=== PATIENT | female | born 1955 | race Caucasian/White ===

== ENCOUNTER 2017-01-03 19:53 | Emergency (ER) | payer MEDICARE, OTHER ==
--- NOTE | 2017-01-03 20:44 | ER Document Report ---
ED General - General Chief Complaint: General Weakness Stated Complaint: WEAKNESS Notes: Patient is a 61-year-old female with past medical history of seizures, A. fib, chronic anxiety, depression, and history of catatonia who presents after a syncopal episode today. States she was seen in the kitchen began to feel lightheaded and nauseated. She then had a witnessed syncopal episode. States that this felt nothing like her seizures and she was alert and oriented also immediately afterward. Denies any injury during the syncopal episode. States she has a history of syncope in the past. She has not seen her primary care physician regarding today's concerns. She is unsure what prompted the episode today. Nothing is worsened her symptoms. No recent medication changes. Denies any focal weakness, numbness, headache, neck pain, or confusion. TRAVEL OUTSIDE OF THE [place] IN LAST 30 DAYS: No - Related Data Allergies/Adverse Reactions: atropine [Atropine] Allergy (Verified 10/26/16 17:05) codeine [Codeine] Allergy (Verified 10/26/16 17:05) doxepin [Doxepin] Allergy (Verified 10/26/16 17:05) fluoxetine HCl [From Prozac] Allergy (Verified 10/26/16 17:05) hydroxyzine pamoate [From Vistaril] Allergy (Verified 10/26/16 17:05) indomethacin [Indomethacin] Allergy (Verified 10/26/16 17:05) lamotrigine [From Lamictal] Allergy (Verified 10/26/16 17:05) lithium [[place]] Allergy (Verified 10/26/16 17:05) methocarbamol [Methocarbamol] Allergy (Verified 10/26/16 17:05) bleach Allergy (Uncoded 10/26/16 17:05) Past Medical History - General Information source: Patient - Social History Smoking Status: Never Smoker Frequency of alcohol use: None Drug Abuse: None Lives with: Family Family History: CAD, CVA - Past Medical History Cardiac Medical History: Reports: Hx Atrial Fibrillation, Hx Congestive Heart Failure, Hx Coronary Artery Disease, Hx Hypercholesterolemia, Hx Hypertension, Hx Heart Murmur Denies: Hx Heart Attack, Hx Peripheral Vascular Disease, Hx Pulmonary Embolism Pulmonary Medical History: Denies: Hx Asthma, Hx Bronchitis, Hx COPD, Hx Pneumonia, Hx Respiratory Failure, Hx Sleep Apnea, Hx Tuberculosis Neurological Medical History: Reports: Hx Cerebrovascular Accident, Hx Migraine , Hx Seizures Endocrine Medical History: Denies: Hx Graves' Disease, Hx Hyperthyroidism Renal/ Medical History: Reports: Hx Kidney Stones. Denies: Hx End Stage Renal Disease, Hx Peritoneal Dialysis Malignancy Medical History: Denies: Hx Leukemia, Hx Lung Cancer GI Medical History: Reports: Hx Gastroesophageal Reflux Disease, Hx Irritable Bowel. Denies: Hx Crohn's Disease, Hx Liver Failure Musculoskeltal Medical History: Denies Hx Arthritis, Reports Hx Fibromyalgia, Denies Hx Multiple Sclerosis, Denies Hx Muscular Dystrophy Psychiatric Medical History: Reports: Hx Anxiety, Hx Bipolar Disorder, Hx Depression Denies: Hx Dementia, Hx Post Traumatic Stress Disorder, Hx Schizophrenia Traumatic Medical History: Denies: Hx Fractures Past Surgical History: Reports: Hx Abdominal Surgery - Abdominoplasty after a gastric bypass, Hx Appendectomy, Hx Breast Surgery - breast reduction, Hx Cardiac Catheterization - x3, Hx Cholecystectomy, Hx Gastric Bypass Surgery, Hx Hysterectomy, Hx Orthopedic Surgery - R ankle, Hx Vascular Surgery - PORT. Denies: Hx Bowel Surgery, Hx Section, Hx Colostomy, Hx Coronary Artery Bypass Graft, Hx Herniorrhaphy, Hx Mastectomy, Hx Pacemaker, Hx Tonsillectomy, Hx Tubal Ligation - Immunizations Immunizations up to date: Yes Hx Diphtheria, Pertussis, Tetanus Vaccination: Yes Hx Pneumococcal Vaccination: 01/17/13 Review of Systems - Review of Systems Notes: Constitutional: Negative for fever. HENT: Negative for sore throat. Eyes: Negative for visual changes. Cardiovascular: Negative for chest pain. Positive for syncopal episode Respiratory: Negative for shortness of breath. Gastrointestinal: Negative for abdominal pain, vomiting or diarrhea. Genitourinary: Negative for dysuria. Musculoskeletal: Negative for back pain. Skin: Negative for rash. Neurological: Negative for headaches, weakness or numbness. 10 point ROS negative except as marked above and in HPI. Physical Exam - Vital signs Vitals: Temp Pulse Resp BP Pulse Ox 97.9 F 50 L 20 131/58 H 97 01/03/17 19:55 01/03/17 19:55 01/03/17 19:55 01/03/17 19:55 01/03/17 19:55 Interpretation: Bradycardic Notes: PHYSICAL EXAMINATION: GENERAL: Well-appearing, well-nourished and in no acute distress. HEAD: Atraumatic, normocephalic. EYES: Pupils equal round and reactive to light, extraocular movements intact, sclera anicteric, conjunctiva are normal. ENT: nares patent, oropharynx clear without exudates. Moist mucous membranes. NECK: Normal range of motion, supple without lymphadenopathy LUNGS: Breath sounds clear to auscultation bilaterally and equal. No wheezes rales or rhonchi. HEART: Regular rate and rhythm without murmurs ABDOMEN: Soft, nontender, normoactive bowel sounds. No guarding, no rebound. No masses appreciated. EXTREMITIES: Normal range of motion, no pitting or edema. No cyanosis. NEUROLOGICAL: Face symmetric. Tongue protrudes midline. Extraocular motions intact. Pupils are 2 mm and equally reactive. Normal speech, normal gait. 5 out of 5 strength in both the distal and proximal upper and lower extremities bilaterally. Sensation is grossly intact throughout. Finger to nose testing normal. Pronator drift normal. PSYCH: Normal mood, normal affect. SKIN: Warm, Dry, normal turgor, no rashes or lesions noted. Course - Re-evaluation Re-evalutation: 01/03/17 20:44 Presentation of syncope of unclear etiology. Patient normotensive, alert, without focal neurologic deficits at time of arrival. Denies syncope was during exertion. No preceding symptoms of palpitations, chest pain, or shortness of breath. Patient asymptomatic at time of arrival. EKG is without evidence of HCOM , right heart strain, ST changes to suggest ischemia, prolong QTc, delta wave, epsilon wave, or Brugada syndrome. Patient denies any family history of sudden cardiac , personal history of of structural heart disease. Patient denies any symptoms to suggest an acute PE, OK, TAD, SAH, seizure, or acute GI bleed as the etiology of their syncope today. On exam, no murmurs to suggest critical aortic stenosis as possible etiology. 01/03/17 21:24 I was called to the room as the patient became spontaneously obtunded. I went to the bedside, patient's vitals are completely within normal limits. She is protecting her airway without difficulty. She moans incomprehensibly with sternal rub. Her arms fall to her side bilaterally when held directly above her face. Her eyes roll downward when her lids are forcibly raise. This is not consistent with an acute stroke, TIA, or intracranial bleed. Patient has a history of similar presentations in the past. CT the head will be obtained to exclude the remote possibility of an intracranial bleed and if this is negative I suspect that this is behavioral in origin as patient has had multiple episodes similar to this that have been evaluated in the past without clear etiology. 01/03/17 23:17 Patient is completely return to her baseline. Family and the patient now relates that she often has these episodes and has been diagnosed as having catatonic spells in the past which would be consistent with the episode that I witnessed. She rates without any neurologic deficits at this time. Her laboratories are completely unremarkable.At this time will discharge with return precautions and follow-up recommendations. Verbal discharge instructions given a the bedside and opportunity for questions given. Medication warnings reviewed. Patient is in agreement with this plan and has verbalized understanding of return precautions and the need for primary care follow-up in the next 24-72 hours. - Vital Signs Vital signs: Temp Pulse Resp BP Pulse Ox 98.4 F 56 L 18 127/64 H 93 01/03/17 23:37 01/03/17 23:41 01/03/17 23:41 01/03/17 23:41 01/03/17 23:41 - Laboratory Result Diagrams: 01/03/17 21:05 01/03/17 21:05 Laboratory results interpreted by me: 01/03/17 01/03/17 21:05 21:05 Plt Count 142 L Chloride 108 H BUN 27 H - Diagnostic Test Radiology reviewed: Image reviewed, Reports reviewed Radiology results interpreted by me: 01/03/17 23:17 CT head: No acute intracranial bleed - EKG Interpretation by Me Additional EKG results interpreted by me: 01/04/17 03:05 Normal sinus rhythm. Rate 53. No ST elevations or depressions. QTC 496. Discharge - Discharge Clinical Impression: Catatonia Syncope Qualifiers: Syncope type: unspecified Qualified Code(s): R55 - Syncope and collapse Condition: Good Disposition: HOME, SELF-CARE Additional Instructions: You were seen today after an episode of passing out. Your EKG here is normal. At this time, we do not feel that your episode of passing out was from any life- threatening cause. Please drink plenty of fluids over the next several days. Return to emergency department if you have any further episodes of syncope, headache, weakness, numbness, chest pain, or shortness of breath. Please follow up closely with your primary care physician.
[2017-01-03 21:11] LABS: HEMOGLOBIN 12.3 g/dL (12.0-15.5); HGB HCT DIFFERENCE -0.1; MEAN CORPUSCULAR HEMOGLOBIN 31.6 pg (27.0-33.4); MEAN CORPUSCULAR HGB CONC 33.3 g/dL (32.0-36.0); MEAN CORPUSCULAR VOLUME 95 fl (80-97); WHITE BLOOD COUNT 5.6 10^3/uL (4.0-10.5)
[2017-01-03 21:31] LABS: ANION GAP 8 (5-19); BLOOD UREA NITROGEN 27 mg/dL (7-20); CALCIUM 8.5 mg/dL (8.4-10.2); CARBON DIOXIDE 28 mmol/L (22-30); CHLORIDE 108 mmol/L (98-107); CREATININE RESULT 0.73 mg/dL (0.52-1.25); GLUCOSE 91 mg/dL (75-110); SODIUM 143.5 mmol/L (137-145)
[2017-01-03 23:41] VITALS: BP 127/64
--- NOTE | 2017-01-04 12:51 | EKG REPORT ---
SEVERITY:- ABNORMAL ECG - SINUS RHYTHM NONSPECIFIC INTRAVENTRICULAR CONDUCTION DELAY LEFT VENTRICULAR HYPERTROPHY : Confirmed by: Radha Rojas 04-Jan-2017 12:50:17
== END 2017-01-04 00:15 | disposition home or self-care (01) ==
LOC: ER 19:53
DX: F20.2 Catatonic schizophrenia (principal); R55 Syncope and collapse; R53.1 Weakness; R00.1 Bradycardia, unspecified; I48.91 Unspecified atrial fibrillation; I50.9 Heart failure, unspecified; I11.0 Hypertensive heart disease with heart failure; I25.10 Atherosclerotic heart disease of native coronary artery without angina pectoris; E78.00 Pure hypercholesterolemia, unspecified; Z86.73 Personal history of transient ischemic attack (TIA), and cerebral infarction without residual deficits; Z87.442 Personal history of urinary calculi; Z98.84 Bariatric surgery status; Z90.49 Acquired absence of other specified parts of digestive tract
CPT/HCPCS: 36415; 70450; 80048; 84484; 85027; 93005; 93010; 99285

== ENCOUNTER 2017-01-28 01:11 | Emergency (ER) | payer MEDICARE, OTHER ==
--- NOTE | 2017-01-28 01:48 | ER Document Report ---
ED General - General Chief Complaint: Shoulder Injury Stated Complaint: SHOULDER INJURY Notes: Patient is a 61-year-old female who presents with complaint of tripping and falling onto her right shoulder. She has pain into her right shoulder. She denies hitting anything else. She denies hitting her head. She denies neck or back pain. She is on Coumadin. She is on Coumadin because of history of atrial fibrillation. She is on flecainide for rate control. She is followed by title vehicle service attendant in [place]. She says last 3-4 months she has been a little bit "unsteady" on her feet. No focal weakness or numbness. No other complaints at this time. TRAVEL OUTSIDE OF THE [place] IN LAST 30 DAYS: No - Related Data Allergies/Adverse Reactions: atropine [Atropine] Allergy (Verified 01/28/17 01:24) codeine [Codeine] Allergy (Verified 01/28/17 01:24) doxepin [Doxepin] Allergy (Verified 01/28/17 01:24) fluoxetine HCl [From Prozac] Allergy (Verified 01/28/17 01:24) hydroxyzine pamoate [From Vistaril] Allergy (Verified 01/28/17 01:24) indomethacin [Indomethacin] Allergy (Verified 01/28/17 01:24) lamotrigine [From Lamictal] Allergy (Verified 01/28/17 01:24) lithium [[place]] Allergy (Verified 01/28/17 01:24) methocarbamol [Methocarbamol] Allergy (Verified 01/28/17 01:24) bleach Allergy (Uncoded 01/28/17 01:24) Past Medical History - Social History Smoking Status: Unknown if Ever Smoked Frequency of alcohol use: None Drug Abuse: None Family History: CAD, CVA - Past Medical History Cardiac Medical History: Reports: Hx Atrial Fibrillation, Hx Congestive Heart Failure, Hx Coronary Artery Disease, Hx Hypercholesterolemia, Hx Hypertension, Hx Heart Murmur Denies: Hx Heart Attack, Hx Peripheral Vascular Disease, Hx Pulmonary Embolism Pulmonary Medical History: Denies: Hx Asthma, Hx Bronchitis, Hx COPD, Hx Pneumonia, Hx Respiratory Failure, Hx Sleep Apnea, Hx Tuberculosis Neurological Medical History: Reports: Hx Cerebrovascular Accident, Hx Migraine , Hx Seizures Endocrine Medical History: Denies: Hx Graves' Disease, Hx Hyperthyroidism Renal/ Medical History: Reports: Hx Kidney Stones. Denies: Hx End Stage Renal Disease, Hx Peritoneal Dialysis Malignancy Medical History: Denies: Hx Leukemia, Hx Lung Cancer GI Medical History: Reports: Hx Gastroesophageal Reflux Disease, Hx Irritable Bowel. Denies: Hx Crohn's Disease, Hx Liver Failure Musculoskeltal Medical History: Denies Hx Arthritis, Reports Hx Fibromyalgia, Denies Hx Multiple Sclerosis, Denies Hx Muscular Dystrophy Psychiatric Medical History: Reports: Hx Anxiety, Hx Bipolar Disorder, Hx Depression Denies: Hx Dementia, Hx Post Traumatic Stress Disorder, Hx Schizophrenia Traumatic Medical History: Denies: Hx Fractures Past Surgical History: Reports: Hx Abdominal Surgery - Abdominoplasty after a gastric bypass, Hx Appendectomy, Hx Breast Surgery - breast reduction, Hx Cardiac Catheterization - x3, Hx Cholecystectomy, Hx Gastric Bypass Surgery, Hx Hysterectomy, Hx Orthopedic Surgery - R ankle, Hx Vascular Surgery - PORT. Denies: Hx Bowel Surgery, Hx Section, Hx Colostomy, Hx Coronary Artery Bypass Graft, Hx Herniorrhaphy, Hx Mastectomy, Hx Pacemaker, Hx Tonsillectomy, Hx Tubal Ligation - Immunizations Immunizations up to date: Yes Hx Diphtheria, Pertussis, Tetanus Vaccination: Yes Hx Pneumococcal Vaccination: 01/17/13 Review of Systems - Review of Systems Notes: My Normal Review Basic REVIEW OF SYSTEMS: CONSTITUTIONAL : Denies fever, chills, or sweats. Denies recent illness. EENT: Denies eye, ear, throat, or mouth pain or symptoms. Denies nasal or sinus congestion. CARDIOVASCULAR: Denies chest pain. RESPIRATORY: Denies cough, cold, or chest congestion. Denies shortness of breath, difficulty breathing, or wheezing. GASTROINTESTINAL: Denies abdominal pain. Denies nausea, vomiting, or diarrhea. Denies constipation. Last BM: MUSCULOSKELETAL: Right shoulder and humerus pain SKIN: Denies rash or skin lesions. HEMATOLOGIC : On Coumadin NEUROLOGICAL: Denies altered mental status or loss of consciousness. Denies headache. Denies weakness or paralysis or loss of use of either side. Denies problems with gait or speech. Denies sensory or motor loss. ALL OTHER SYSTEMS REVIEWED AND NEGATIVE. Physical Exam - Vital signs Vitals: Pulse Ox 97 01/28/17 01:21 - Notes Notes: General Appearance: Well nourished, alert, cooperative, no acute distress, moderate obvious discomfort. Vitals: reviewed, See vital signs table. Head: no swelling or tenderness to the head Eyes: PERRL, EOMI, Conjuctiva clear Mouth: No decreasd moisture Neck: Supple, no neck tenderness, No thyromegaly Lungs: No wheezing, No rales, No rhonci, No accessory muscle use, good air exchange bilaterally. Heart: Cardiac rate, Regular rythm, No murmur, no rub Abdomen: Normal BS, soft, No rigidity, No abdominal tenderness, No guarding, no rebound, no abdominal masses, no organomegaly Extremities: strength 5/5 in all extremities, good pulses in all extremities, pain to palpation of the right shoulder. No pain into the distal humerus elbow or distal right arm. Other 3 extremities are nontender to palpation with good range of motion. Pelvis is stable. Good peripheral pulses. Good distal sensation both hands., no edema. Skin: warm, dry, appropriate color, no rash Neuro: speech clear, oriented x 3, normal affect, responds appropriately to questions. Cranial nerves II through XII intact. Distal sensation intact. Good strength in all 4 extremities. Course - Re-evaluation Re-evalutation: 01/28/17 03:[address] with Dr[address] Hutton, title vehicle service attendant covering for Dr. Madison. I did explain to him that the patient's heart rate has been in the 40s and 50s. Her blood pressures been okay. I asked him if he wanted me to adjust the rate controlling medications. He says I can cut the metoprolol in half. - Vital Signs Vital signs: Temp Pulse Resp BP Pulse Ox 15 101/59 L 97 01/28/17 04:00 01/28/17 01:46 01/28/17 04:00 - Laboratory Result Diagrams: 01/28/17 01:39 01/28/17 01:39 Laboratory results interpreted by me: 01/28/17 01/28/17 01/28/17 01:39 01:39 01:39 Hgb 11.9 L MCV 98 H Plt Count 134 L PT 19.2 H Sodium 145.1 H Chloride 113 H Carbon Dioxide 21 L Calcium 8.2 L AST 43 H Albumin 3.3 L Urine Protein Urine Nitrite Ur Leukocyte Esterase 01/28/17 04:08 Hgb MCV Plt Count PT Sodium Chloride Carbon Dioxide Calcium AST Albumin Urine Protein 30 H Urine Nitrite POSITIVE H Ur Leukocyte Esterase LARGE H - EKG Interpretation by Me Additional EKG results interpreted by me: 01/28/17 01:48 EKG is reviewed and interpreted by me. EKG shows A. fib with a rate of [address] segment elevation or depression. No ischemic T wave inversions. QRS duration QTC intervals are within normal range. Old EKG for comparison is from 01/03/2017. - Transfer of Care Notes: 01/28/17 05:22 Patient does have a humeral head fracture. We have placed her in a sling and have her follow-up with orthopedics. I did do a CT scan of her head being that she is on Coumadin did fall. CT scan was negative. She does have chronic A. fib. Her rate is bradycardic. I did speak with Dr. Hutton, cardiology is covering for Dr. Madison, who requested that I decrease her Toprol dose to 12.5 mg. Patient agrees with this. She does have UTI. We'll place her on antibiotics. She does have history of frequent UTIs. She's never seen a urologist despite her multiple UTIs. I've referred her to urology. Patient encouraged return to ER shows fevers, worsening pain, or feels unwell. Patient agrees with plan and will be discharged home. Dictation of this chart was performed using voice recognition software; therefore, there may be some unintended grammatical errors. Discharge - Discharge Clinical Impression: Bradycardia Fx humeral neck Qualifiers: Encounter type: initial encounter Fracture type: closed Laterality: right Qualified Code(s): S42.211A - Unspecified displaced fracture of surgical neck of right humerus, initial encounter for closed fracture UTI (urinary tract infection) Qualifiers: Urinary tract infection type: site unspecified Hematuria presence: without hematuria Qualified Code(s): N39.0 - Urinary tract infection, site not specified Condition: Good Disposition: HOME, SELF-CARE Instructions: Oral Narcotic Medication ([facility]) Additional Instructions: URINARY TRACT INFECTION: Your evaluation indicates that you have a urinary tract infection. This is due to germs growing in the bladder. This is a common problem. This infection usually responds quickly to antibiotics. Your antibiotic should be taken exactly as prescribed. Drink plenty of fluids -- three to four quarts a day. Occasionally, a bladder anesthetic will be prescribed to help stop the feeling of urgency until the antibiotic has a chance to clear the infection. This may cause your urine to be dark orange. Certain urine infections require a culture. If the doctor obtained a culture, the results will be back in two days. You should call to see if a change in treatment is needed. A repeat urinalysis after you finish treatment is often recommended. The physician will let you know if further testing is required. Call the doctor if you develop fever, chills, flank pain, inability to urinate, or blood in the urine. ANTIBIOTIC THERAPY: You have been given an antibiotic prescription. It's important that you take all the medication, unless instructed otherwise by your physician. Failure to complete the entire course can result in relapse of your condition. Common side effects of antibiotics include nausea, intestinal cramping, or diarrhea. Women may develop vaginal yeast infections, and babies can get yeast (thrush) in the mouth following the use of antibiotics. Contact your physician if you develop significant side effects from this medication. Allergy to this antibiotic can result in hives, wheezing, faintness, or itching. If symptoms of allergy occur, stop the medication and call the doctor. CIPROFLOXACIN: You have been given an antibacterial agent, ciprofloxacin (Cipro). This medicine is not related to the penicillins, sulfas, cephalosporins, or tetracyclines. It is often given to patients who are allergic to these drugs. It has been chosen for you either because other drugs are not appropriate, or because of the nature of your problem. Cipro should not be taken with antacids, as these can decrease its effectiveness. It can be taken without regard to meals. CIPRO SHOULD NOT BE TAKEN BY CHILDREN, NURSING WOMEN, OR WOMEN. Although Cipro is usually well-tolerated, common side effects can include nausea and diarrhea. Contact your doctor if you experience any unusual symptoms while on this medication, such as joint pain or swelling, shortness of breath, wheezing, faintness, or hives. FOLLOW-UP CARE: If you have been referred to a physician for follow-up care, call the physician s office for an appointment as you were instructed or within the next two days. If you experience worsening or a significant change in your symptoms, notify the physician immediately or return to the Emergency Department at any time for re-evaluation. Please return to the ER immediately if you have recurrent falls, headache, vomiting, fevers, or feel unwell. Please cut your Metoprolol tablets in half so that you're only taking 12.5 mg a day. Please call your title vehicle service attendant, Dr. Madison, to make a close follow-up appointment. Please follow-up with orthopedic surgeon, Dr. Johnson, in regards to your humerus fracture. Please wear the sling for comfort and immobilization of the shoulder. Please follow- up with the urologist due to frequent urinary tract infections. I have included the number to a urologist. They have an office in [place] as well as in [place]. Prescriptions: Ciprofloxacin HCl [Cipro 500 mg Tablet] 500 mg PO BID #10 tablet Hydrocodone/Acetaminophen [[place] 5-325 mg Tablet] 1 tab PO Q4 PRN #16 tablet PRN Reason: For Breakthrough Pain Referrals: ROBERTA MANSFIELD MD [ACTIVE STAFF] - 01/29/17 JIGAR REYES [NO LOCAL MD] - 01/29/17
[2017-01-28 01:54] LABS: ABSOLUTE EOSINOPHILS # (AUTO) 0.1 10^3/uL (0.0-0.6); ABSOLUTE LYMPHOCYTES (AUTO) 1.7 10^3/uL (0.5-4.7); ABSOLUTE MONOCYTES (AUTO) 0.8 10^3/uL (0.1-1.4); ABSOLUTE NEUT (AUTO) 4.3 10^3/uL (1.7-8.2); BASOPHILS % (AUTO) 0.7 % (0-2); EOSINOPHILS % (AUTO) 1.4 % (0-6); HEMATOCRIT 36.8 % (36.0-47.0); HEMOGLOBIN 11.9 g/dL (12.0-15.5); HGB HCT DIFFERENCE -1.1; LYMPHOCYTES % (AUTO) 24.8 % (13-45); MEAN CORPUSCULAR HEMOGLOBIN 31.8 pg (27.0-33.4); MEAN CORPUSCULAR HGB CONC 32.4 g/dL (32.0-36.0); MEAN CORPUSCULAR VOLUME 98 fl (80-97); MONOCYTES % (AUTO) 11.7 % (3-13); RED BLOOD COUNT 3.75 10^6/uL (3.72-5.28); RED CELL DISTRIBUTION WIDTH 13.5 % (11.5-14.0); SEGMENTED NEUTROPHILS % (AUTO) 61.4 % (42-78); WHITE BLOOD COUNT 6.9 10^3/uL (4.0-10.5)
[2017-01-28 01:59] LABS: PROTHROMBIN TIME 19.2 SEC (11.4-15.4)
[2017-01-28 02:00] LABS: PARTIAL THROMBOPLASTIN TIME 27.6 SEC (23.5-35.8)
[2017-01-28 03:10] LABS: ALANINE AMINOTRANSFERASE 39 U/L (9-52); ALBUMIN 3.3 g/dL (3.5-5.0); ALKALINE PHOSPHATASE 104 U/L (38-126); ANION GAP 11 (5-19); ASPARTATE AMINO TRANSFERASE 43 U/L (14-36); BILIRUBIN,TOTAL 0.3 mg/dL (0.2-1.3); BLOOD UREA NITROGEN 17 mg/dL (7-20); CALCIUM 8.2 mg/dL (8.4-10.2); CARBON DIOXIDE 21 mmol/L (22-30); CHLORIDE 113 mmol/L (98-107); CREATINE KINASE 45 U/L (30-135); CREATININE RESULT 0.78 mg/dL (0.52-1.25); GLUCOSE 98 mg/dL (75-110); POTASSIUM 4.2 mmol/L (3.6-5.0); SODIUM 145.1 mmol/L (137-145); TOTAL PROTEIN 6.5 g/dL (6.3-8.2)
[2017-01-28 03:22] LABS: CREATINE KINASE MB 0.54 ng/mL (<4.55)
[2017-01-28 03:27] LABS: TROPONIN I < 0.012 ng/mL
[2017-01-28] MEDS ORDERED: HYDROCODONE/ACETAMINOPHEN 5-325 MG TABLET PO ONE (04:17)
[2017-01-28 04:40] LABS: AMORPHOUS SEDIMENT,URINE TRACE /HPF; APPEARANCE,URINE CLOUDY; BILIRUBIN,URINE NEGATIVE (NEGATIVE); GLUCOSE, URINE NEGATIVE (NEGATIVE); KETONES,URINE NEGATIVE (NEGATIVE); LEUKOCYTE ESTERASE,URINE LARGE (NEGATIVE); NITRITE,URINE POSITIVE (NEGATIVE); PROTEIN,URINE 30 mg/dL (NEGATIVE); URINE SPECIFIC GRAVITY 1.024; UROBILINOGEN,URINE NEGATIVE mg/dL (<2.0)
[2017-01-28] MEDS ORDERED: CIPROFLOXACIN HCL 500 MG TABLET PO ONE (05:17)
[2017-01-28] MEDS ORDERED: HYDROCODONE/ACETAMINOPHEN 5-325 MG 6 TAB/DSPK PO PRN (05:17)
[2017-01-28 05:41] VITALS: BP 106/53
--- NOTE | 2017-01-28 20:11 | EKG REPORT ---
SEVERITY:- ABNORMAL ECG - SINUS RHYTHM LEFT VENTRICULAR HYPERTROPHY : Confirmed by: Radha Rojas 28-Jan-2017 20:10:47
== END 2017-01-28 05:47 | disposition home or self-care (01) ==
LOC: ER 01:11
DX: S42.211A Unspecified displaced fracture of surgical neck of right humerus, initial encounter for closed fracture (principal); R00.1 Bradycardia, unspecified; N39.0 Urinary tract infection, site not specified; I48.91 Unspecified atrial fibrillation; W19.XXXA Unspecified fall, initial encounter
CPT/HCPCS: 93005; 99284; 36415; 87086; 82553; 82550; 85025; 85610; 85730; 87088; 80053; 81001; 84484; 87186; 73060; 70450; 93010; A9270 ×3

== ENCOUNTER 2017-04-12 17:17 | Emergency (ER) | payer MEDICARE, OTHER ==
--- NOTE | 2017-04-12 20:13 | ER Document Report ---
ED Extremity Problem, Upper - General Chief Complaint: Arm Problem Stated Complaint: LEFT ARM PAIN Time Seen by Provider: 04/12/17 20:06 Notes: Patient noted pain in the inner aspect of her left arm, proximal forearm, near the elbow over the last 3 or 4 days. She is found a very tiny nodular structure just about at the elbow itself that is very tender to the touch and about which the pain is present. Has never had this before. Does not feel it swollen. Just painful to touch or move the arm in certain positions. Patient has a banana room cutter in [place] and she is on Xarelto for her atrial fibrillation. She called our office and the nurse that she needed to go to the emergency room and make sure she was not having a clot in her left arm. Patient has never had this before. Recalls no injury or unusual activity or positioning of her left arm. Denies any chest pain or shortness of breath. No neurologic deficits. TRAVEL OUTSIDE OF THE [place] IN LAST 30 DAYS: No - Related Data Allergies/Adverse Reactions: atropine [Atropine] Allergy (Verified 04/12/17 19:56) codeine [Codeine] Allergy (Verified 04/12/17 19:56) doxepin [Doxepin] Allergy (Verified 04/12/17 19:56) fluoxetine HCl [From Prozac] Allergy (Verified 04/12/17 19:56) hydroxyzine pamoate [From Vistaril] Allergy (Verified 04/12/17 19:56) indomethacin [Indomethacin] Allergy (Verified 04/12/17 19:56) lamotrigine [From Lamictal] Allergy (Verified 04/12/17 19:56) lithium [[place]] Allergy (Verified 04/12/17 19:56) methocarbamol [Methocarbamol] Allergy (Verified 04/12/17 19:56) bleach Allergy (Uncoded 04/12/17 19:56) Past Medical History - Social History Smoking Status: Unknown if Ever Smoked Cigarette use (# per day): No Family History: CAD, CVA Patient has suicidal ideation: No - Past Medical History Cardiac Medical History: Reports: Hx Atrial Fibrillation, Hx Congestive Heart Failure, Hx Coronary Artery Disease, Hx Hypercholesterolemia, Hx Hypertension, Hx Heart Murmur Neurological Medical History: Reports: Hx Cerebrovascular Accident, Hx Migraine , Hx Seizures Renal/ Medical History: Reports: Hx Kidney Stones GI Medical History: Reports: Hx Gastroesophageal Reflux Disease, Hx Irritable Bowel Musculoskeltal Medical History: Reports Hx Fibromyalgia Psychiatric Medical History: Reports: Hx Anxiety, Hx Bipolar Disorder, Hx Depression Traumatic Medical History: Denies: Hx Fractures Past Surgical History: Reports: Hx Abdominal Surgery - Abdominoplasty after a gastric bypass, Hx Appendectomy, Hx Breast Surgery - breast reduction, Hx Cardiac Catheterization - x3, Hx Cholecystectomy, Hx Gastric Bypass Surgery, Hx Hysterectomy, Hx Orthopedic Surgery - R ankle, Hx Vascular Surgery - PORT - Immunizations Immunizations up to date: Yes Hx Diphtheria, Pertussis, Tetanus Vaccination: Yes Hx Pneumococcal Vaccination: 01/17/13 Review of Systems - Review of Systems Notes: REVIEW OF SYSTEMS: CONSTITUTIONAL : Denies fever. EENT: Denies eye, ear, nose or mouth or throat pain or other symptoms. CARDIOVASCULAR: Denies chest pain. RESPIRATORY: Denies cough, chest congestion, or shortness of breath. GASTROINTESTINAL: Denies abdominal pain or nausea, vomiting, or diarrhea. GENITOURINARY: Denies difficulty or painful urinating, urinary frequency, blood in urine. MUSCULOSKELETAL: Denies back or neck pain. Denies joint pain or swelling. SKIN: See HPI. NEUROLOGICAL: Denies LOC or altered mental status. Denies headache. Denies sensory loss or motor deficits. ALL OTHER SYSTEMS REVIEWED AND NEGATIVE. Course - Re-evaluation Re-evalutation: 04/12/17 21:08 Since physical findings are consistent with a superficial venous thrombosis. No evidence of a deep venous thrombosis. I do not think the patient is at any risk of an adverse outcome. She is already anticoagulated on her Xarelto. I have recommended conservative care with warm compresses and elevation. Patient says she is unable to take NSAIDs. Discharge - Discharge Clinical Impression: Superficial venous thrombosis of arm Qualifiers: Laterality: left Qualified Code(s): I82.612 - Acute embolism and thrombosis of superficial veins of left upper extremity Condition: Stable Disposition: HOME, SELF-CARE Additional Instructions: Superficial Venous Thrombosis: You have a small superficial venous thrombosis in her left arm. That is a small clot in a small superficial vein of the left arm. These clots were not dangerous and they do not break off and go into your lungs. Sometimes they will turn into superficial phlebitis, same pain, swelling, and warmth and heat to the area. Superficial venous thrombosis are similar to varicose veins in her lower extremities. Varicose veins These are veins that bulge out under the skin. There are more prominent in the lower extremities But can occur in the upper extremities, as well. They develop when the valves in the veins fail. These valves normally keep blood moving upstream towards the heart. Without the valves, the pressure of the blood expands and weakens the veins. Varicose veins may simply be unsightly. But often they cause aching pains in the legs, especially after standing. There may be itching and irritation. Occasionally a vein may become clotted, with redness, tenderness, and swelling. Elevate your legs periodically during the day. Support hose can help. Don' t rub or scratch at bulging veins -- this makes them worse. Don't sit with your legs crossed. Avoid standing in one place for more than a few minutes. Walking reduces the pressure in the veins. If varicose veins continue to cause severe symptoms, an operation to remove them ("vein stripping") might help. Call the doctor or return if there is increased swelling, redness, or fever , if there is general leg pain, or if a varicose veins bleeds and won't stop after 15 minutes of direct pressure. Warm Packs After approximately two days, apply gentle heat (such as a heating pad or hot water bottle) for about 20 to 30 minutes about every two hours -- at least four times daily. Warmth and elevation will help you make a more rapid recovery , and will ease the pain considerably. Do not use HOT heat, and never apply heat for longer than 30 minutes. The continuous heat can invisibly damage skin and muscles -- even when no burn is seen on the surface. Damaged muscles can make you MORE sore. Elevation & Warmth The area should be elevated as much as possible over the next 48 hours. Try to keep it above the level of your heart. Apply gentle heat (such as a heating pad or hot water bottle) for about 20 to 30 minutes about every two hours -- at least four times daily. Warmth and elevation will help you make a more rapid recovery, and will ease the pain considerably. Your arm swells much worse, becomes much more painful, he began to run a fever, or you feel that you should be reevaluated, return for us to do so at any time. It is extremely unlikely that she will develop serious clots in any of your blood vessels while you are on the Eliquis. Referrals: JONATHAN HUDSON, [Primary Care Provider] - Follow up as needed
== END 2017-04-12 20:58 | disposition home or self-care (01) ==
LOC: ER 17:17
DX: I82.612 Acute embolism and thrombosis of superficial veins of left upper extremity (principal); M79.632 Pain in left forearm; I25.10 Atherosclerotic heart disease of native coronary artery without angina pectoris; I10 Essential (primary) hypertension; Z88.5 Allergy status to narcotic agent; Z88.8 Allergy status to other drugs, medicaments and biological substances; Z91.048 Other nonmedicinal substance allergy status; Z86.73 Personal history of transient ischemic attack (TIA), and cerebral infarction without residual deficits; Z98.84 Bariatric surgery status
CPT/HCPCS: 99283

== ENCOUNTER 2017-07-04 09:59 | Emergency (ER) | payer MEDICARE, OTHER ==
[2017-07-04 10:45] LABS: ABSOLUTE EOSINOPHILS # (AUTO) 0.1 10^3/uL (0.0-0.6); ABSOLUTE MONOCYTES (AUTO) 0.5 10^3/uL (0.1-1.4); ABSOLUTE NEUT (AUTO) 1.9 10^3/uL (1.7-8.2); BASOPHILS % (AUTO) 0.5 % (0-2); HEMATOCRIT 34.5 % (36.0-47.0); HEMOGLOBIN 11.6 g/dL (12.0-15.5); HGB HCT DIFFERENCE 0.3; LYMPHOCYTES % (AUTO) 44.8 % (13-45); MEAN CORPUSCULAR HEMOGLOBIN 33.1 pg (27.0-33.4); MEAN CORPUSCULAR HGB CONC 33.8 g/dL (32.0-36.0); MEAN CORPUSCULAR VOLUME 98 fl (80-97); MONOCYTES % (AUTO) 10.8 % (3-13); RED BLOOD COUNT 3.52 10^6/uL (3.72-5.28); RED CELL DISTRIBUTION WIDTH 13.3 % (11.5-14.0); SEGMENTED NEUTROPHILS % (AUTO) 41.9 % (42-78); WHITE BLOOD COUNT 4.5 10^3/uL (4.0-10.5)
--- NOTE | 2017-07-04 10:57 | RADIOLOGY REPORT (SQ) ---
EXAM DESCRIPTION: CHEST PA/LAT COMPLETED DATE/TIME: 07/04/2017 10:43 am REASON FOR STUDY: short of breath COMPARISON: 10/26/2016 EXAM PARAMETERS: NUMBER OF VIEWS: two views TECHNIQUE: Digital Frontal and Lateral radiographic views of the chest acquired. RADIATION DOSE: NA LIMITATIONS: none FINDINGS: LUNGS AND PLEURA: No opacities, masses or pneumothorax. No pleural effusion. MEDIASTINUM AND HILAR STRUCTURES: No masses or contour abnormalities. HEART AND VASCULAR STRUCTURES: Heart normal size. No evidence for failure. BONES: There is a fracture of the right humeral neck that was not present on the earlier study. HARDWARE: Injection port on the right. The tip of the catheter is in the superior vena cava. OTHER: No other significant finding. IMPRESSION: 1. No acute cardiopulmonary disease. 2. Healing fracture of the right humeral neck not present in early October 2016. TECHNICAL DOCUMENTATION: JOB ID: [id number] [employer]- All Rights Reserved
[2017-07-04 11:11] LABS: ALANINE AMINOTRANSFERASE 33 U/L (9-52); ALBUMIN 3.5 g/dL (3.5-5.0); ALKALINE PHOSPHATASE 114 U/L (38-126); ANION GAP 7 (5-19); ASPARTATE AMINO TRANSFERASE 28 U/L (14-36); BILIRUBIN,DIRECT 0.3 mg/dL (0.0-0.4); BILIRUBIN,TOTAL 0.3 mg/dL (0.2-1.3); BLOOD UREA NITROGEN 20 mg/dL (7-20); CALCIUM 8.8 mg/dL (8.4-10.2); CARBON DIOXIDE 30 mmol/L (22-30); CHLORIDE 106 mmol/L (98-107); GLUCOSE 82 mg/dL (75-110); LIPASE 157.8 U/L (23-300); POTASSIUM 4.4 mmol/L (3.6-5.0); SODIUM 143.2 mmol/L (137-145); TOTAL PROTEIN 6.6 g/dL (6.3-8.2)
[2017-07-04 11:23] LABS: APPEARANCE,URINE CLEAR; BILIRUBIN,URINE NEGATIVE (NEGATIVE); GLUCOSE, URINE NEGATIVE (NEGATIVE); KETONES,URINE NEGATIVE (NEGATIVE); LEUKOCYTE ESTERASE,URINE LARGE (NEGATIVE); NITRITE,URINE NEGATIVE (NEGATIVE); PROTEIN,URINE NEGATIVE (NEGATIVE); URINE SPECIFIC GRAVITY 1.005; UROBILINOGEN,URINE NEGATIVE mg/dL (<2.0)
[2017-07-04 11:37] LABS: CREATINE KINASE MB 0.59 ng/mL (<4.55)
[2017-07-04 11:39] LABS: TROPONIN I < 0.012 ng/mL
[2017-07-04] MEDS ORDERED: NORMAL SALINE 1000 ML 1,000 ML IV ONE (12:33)
[2017-07-04] MEDS ORDERED: CEFTRIAXONE 1 GM/D5W RTU 1 GM/50 ML RTUPB IV ONE (12:34)
--- NOTE | 2017-07-04 12:42 | ER Document Report ---
ED General - General Chief Complaint: Weakness Stated Complaint: WEAKNESS Time Seen by Provider: 07/04/17 10:13 Notes: Patient brought in by EMS for low heart rate and low blood pressure. Patient was at a visit with her pain management doctors when this episode occurred. Patient says that she has been feeling weak for the last 2 weeks, although she says she has been able to eat and drink sufficiently. She sees pain management for back pain. She is on a pain patch, but it imaged on Sunday and that was her last one. At the pain management office, her heart rate was in the 40s and her blood pressure was 83 systolic. She has been nauseated but not vomiting except for 2 days ago she vomited. She has had some diarrhea. She sleeps at night with CPAP. Has had some pain in the lower right anterior chest off and on for the past 2 weeks. It extends over into the epigastric region. Also has some shortness of breath and difficulty breathing. Has not noted any fever. Does feel her legs are swollen. She has a history of CHF and is on Lasix. Has had 3 cardiac caths , but no stents placed in her coronary arteries. Sees a recreational leader at [place], Dr. Madison, whom she saw about 4 months ago and is scheduled to see her tomorrow. She has a history of atrial fibrillation and is currently on Toprol-XL daily and Xarelto. Other PMH: Hysterectomy, gastric bypass 20 years ago, abdominoplasty, cardiac caths with history of CHF. Anemia, used to receive iron by a port in the right chest, but has not had any for over a year. TRAVEL OUTSIDE OF THE [place] IN LAST 30 DAYS: No - Related Data Allergies/Adverse Reactions: atropine [Atropine] Allergy (Verified 07/04/17 17:21) codeine [Codeine] Allergy (Verified 07/04/17 17:21) doxepin [Doxepin] Allergy (Verified 07/04/17 17:21) fluoxetine HCl [From Prozac] Allergy (Verified 07/04/17 17:21) hydroxyzine pamoate [From Vistaril] Allergy (Verified 07/04/17 17:21) indomethacin [Indomethacin] Allergy (Verified 07/04/17 17:21) lamotrigine [From Lamictal] Allergy (Verified 07/04/17 17:21) lithium [[place]] Allergy (Verified 07/04/17 17:21) methocarbamol [Methocarbamol] Allergy (Verified 07/04/17 17:21) bleach Allergy (Uncoded 07/04/17 17:21) Past Medical History - Social History Smoking Status: Unknown if Ever Smoked Chew tobacco use (# tins/day): No Frequency of alcohol use: None Drug Abuse: None Family History: Reviewed & Not Pertinent, CAD, CVA - Past Medical History Cardiac Medical History: Reports: Hx Atrial Fibrillation, Hx Congestive Heart Failure, Hx Coronary Artery Disease, Hx Hypercholesterolemia, Hx Hypertension, Hx Heart Murmur Neurological Medical History: Reports: Hx Cerebrovascular Accident, Hx Migraine , Hx Seizures Renal/ Medical History: Reports: Hx Kidney Stones GI Medical History: Reports: Hx Gastroesophageal Reflux Disease, Hx Irritable Bowel Musculoskeltal Medical History: Reports Hx Fibromyalgia Psychiatric Medical History: Reports: Hx Anxiety, Hx Bipolar Disorder, Hx Depression Past Surgical History: Reports: Hx Abdominal Surgery - Abdominoplasty after a gastric bypass, Hx Appendectomy, Hx Breast Surgery - breast reduction, Hx Cardiac Catheterization - x3, Hx Cholecystectomy, Hx Gastric Bypass Surgery, Hx Hysterectomy, Hx Orthopedic Surgery - R ankle, Hx Vascular Surgery - PORT - Immunizations Immunizations up to date: Yes Hx Diphtheria, Pertussis, Tetanus Vaccination: Yes Hx Pneumococcal Vaccination: 01/17/13 Review of Systems - Review of Systems Notes: REVIEW OF SYSTEMS: CONSTITUTIONAL : Denies fever. Feeling generalized weakness. EENT: Denies eye, ear, nose or mouth or throat pain or other symptoms. CARDIOVASCULAR: Has had some right lower anterior chest pains off and on for the past 2 weeks. RESPIRATORY: Denies cough, chest congestion, but has had shortness of breath and difficulty breathing intermittently over the past couple of weeks. GASTROINTESTINAL: Denies abdominal pain but has had nausea and vomiting and diarrhea. GENITOURINARY: Denies difficulty or painful urinating, urinary frequency, blood in urine. MUSCULOSKELETAL: Denies back or neck pain. Denies joint pain or swelling. Feels she has swelling of the lower extremities. SKIN: Denies rash or skin lesions. NEUROLOGICAL: Denies LOC or altered mental status. Denies headache. Denies sensory loss or motor deficits. ALL OTHER SYSTEMS REVIEWED AND NEGATIVE. Physical Exam - Vital signs Vitals: Resp Pulse Ox 16 100 07/04/17 10:06 07/04/17 10:06 Interpretation: Normal - Notes Notes: PHYSICAL EXAMINATION: GENERAL: Well-appearing, in no acute distress. Initially, upon arrival, blood pressure in the 80s systolic here and heart rate in the low 40s. HEAD: Atraumatic, normocephalic. ENT: oropharynx clear without exudates. Moist mucous membranes. NECK: Normal range of motion, supple. LUNGS: Breath sounds clear and equal bilaterally. HEART: Regular rate and rhythm without murmurs. Heart rate about 45. ABDOMEN: Soft, nontender. No guarding or rebound. BACK: No tenderness throughout entire back. EXTREMITIES: Normal range of motion without pain. No significant pretibial pitting edema of either leg. NEUROLOGICAL: Normal speech, normal gait. Normal sensory, motor, and reflex exams. Awake, alert, and oriented x3. PSYCH: Normal mood, normal affect. SKIN: Warm, dry, no rashes. Course - Re-evaluation Re-evalutation: 07/04/17 17:11 Discussed patient's findings and lab results with Dr. Madison, recreational leader in [place]. She recommended holding the Toprol and follow-up with her tomorrow as scheduled. I related that to the patient and her daughter who is here with her. Patient has received a liter of saline and a gram of Rocephin IV. 07/04/17 19:16 patient remained stable throughout her stay. In spite of her heart rate remaining in the low 40s, her blood pressure stabilized around 120 systolic and stayed at those levels throughout her several hours in the emergency department, allowing for adequate observation. Her lab work is suggestive of a UTI, but otherwise is unremarkable. - Vital Signs Vital signs: Temp Pulse Resp BP Pulse Ox 97.8 F 45 L 20 131/55 H 100 07/04/17 14:29 07/04/17 14:29 07/04/17 17:41 07/04/17 17:41 07/04/17 17:41 - Laboratory Result Diagrams: 07/04/17 10:22 07/04/17 10:22 Laboratory results interpreted by me: 07/04/17 07/04/17 07/04/17 10:22 10:59 12:36 RBC 3.52 L Hgb 11.6 L Hct 34.5 L MCV 98 H Plt Count 120 L Seg Neutrophils % 41.9 L Lactic Acid 0.6 L Ur Leukocyte Esterase LARGE H Discharge - Discharge Clinical Impression: Bradycardia, Hypotension, UTI (urinary tract infection) Condition: Stable Disposition: HOME, SELF-CARE Additional Instructions: Hypotension Your blood pressure is low. Low blood pressure can make you feel weak, lightheaded, and even make you pass out. Low blood pressure can be caused by dehydration or blood loss. Problems with the heart, kidneys, or blood vessels can cause hypotension. Certain medications can make your blood pressure abnormally low. Infection can lower blood pressure. In many cases, the person is totally healthy, but for unknown reasons, the blood pressure falls when they stand up. This is called benign orthostatic hypotension. The treatment of low blood pressure depends on the severity of the symptoms , and on the underlying cause. Sometimes it's not possible to identify a cause. At this time, it doesn't appear that the problem is serious enough to require hospitalization. Medicines that could be contributing to the problem can be withheld or reduced in dosage if your doctor approves. Get plenty of fluids. Eat a healthy diet. Be careful to stand up slowly. If you feel suddenly lightheaded or if your vision goes dai, sit or lie down at once. Don't drive or operate machinery until the symptoms are under control. Return or call the doctor if you develop fainting or severe dizziness, severe weakness, problems with vision, chest pain, shortness of breath, fever, or confusion. You also have a slightly slow heart rate, called bradycardia, with your heart rate in the low 40s. Stop taking your Toprol for now until you talk with Dr. Madison tomorrow. URINARY TRACT INFECTION: Your evaluation indicates that you have a urinary tract infection. This is due to germs growing in the bladder. This is a common problem. This infection usually responds quickly to antibiotics. Your antibiotic should be taken exactly as prescribed. Drink plenty of fluids -- three to four quarts a day. Occasionally, a bladder anesthetic will be prescribed to help stop the feeling of urgency until the antibiotic has a chance to clear the infection. This may cause your urine to be dark orange. Certain urine infections require a culture. If the doctor obtained a culture, the results will be back in two days. You should call to see if a change in treatment is needed. A repeat urinalysis after you finish treatment is often recommended. The physician will let you know if further testing is required. Call the doctor if you develop fever, chills, flank pain, inability to urinate, or blood in the urine. ANTIBIOTIC THERAPY: You have been given an antibiotic prescription. It's important that you take all the medication, unless instructed otherwise by your physician. Failure to complete the entire course can result in relapse of your condition. Common side effects of antibiotics include nausea, intestinal cramping, or diarrhea. Women may develop vaginal yeast infections, and babies can get yeast (thrush) in the mouth following the use of antibiotics. Contact your physician if you develop significant side effects from this medication. Allergy to this antibiotic can result in hives, wheezing, faintness, or itching. If symptoms of allergy occur, stop the medication and call the doctor. Rocephin You have been given an injection of an antibiotic called Rocephin ( ceftriaxone). Sometimes the injection must be combined with antibiotic pills. For some infections, such as an uncomplicated ear infection, Rocephin provides all the antibiotic that's needed. The antibiotic will be in your body for about two days. For serious infections, we usually repeat doses of Rocephin daily. Side effects are very unusual following a shot. Women may develop vaginal yeast infections, and babies can get yeast (thrush) in the mouth following the use of antibiotics. Contact your physician if you have symptoms with this medication. Allergy to this antibiotic can result in hives, wheezing, faintness, or itching. If symptoms of allergy occur, call the doctor at once. NITROFURANTOIN (MACRODANTIN, MACROBID): You have received a prescription for nitrofurantoin (Macrodantin). This antibiotic is used for urinary tract infections. Women who are or nursing should notify the physician before taking this medicine. If you have ever had a problem caused by this medication in the past, be sure the physician is aware of it. Common side effects of this medicine include nausea, vomiting, or decreased appetite. Notify your physician if these side effects become severe. Immediately stop this medicine and call the physician if you develop cough , shortness of breath, chest pain, weakness, jaundice (yellow color of the skin and whites of the eyes), or a skin rash. FOLLOW-UP CARE: If you have been referred to a physician for follow-up care, call the physician s office for an appointment as you were instructed or within the next two days. If you experience worsening or a significant change in your symptoms, notify the physician immediately or return to the Emergency Department at any time for re-evaluation. Follow-up with Dr. Madison as scheduled tomorrow Prescriptions: Nitrofurantoin/Nitrofuran Mac [Macrobid 100 mg Capsule] 1 tab PO BID #14 capsule
[2017-07-04 12:49] LABS: PROTHROMBIN TIME 13.7 SEC (11.4-15.4)
--- NOTE | 2017-07-04 13:45 | EKG REPORT ---
SEVERITY:- ABNORMAL ECG - SINUS BRADYCARDIA LEFT VENTRICULAR HYPERTROPHY : Confirmed by: Junior Ahn MD 04-Jul-2017 13:45:06
[2017-07-04 17:44] VITALS: BP 131/55
== END 2017-07-04 17:50 | disposition home or self-care (01) ==
LOC: ER 09:59
DX: I95.9 Hypotension, unspecified (principal); R00.1 Bradycardia, unspecified; N39.0 Urinary tract infection, site not specified; R53.1 Weakness; M54.9 Dorsalgia, unspecified; R11.2 Nausea with vomiting, unspecified; R19.7 Diarrhea, unspecified; R07.9 Chest pain, unspecified; R10.13 Epigastric pain; R06.02 Shortness of breath; I11.0 Hypertensive heart disease with heart failure; I50.9 Heart failure, unspecified; I25.10 Atherosclerotic heart disease of native coronary artery without angina pectoris; I48.91 Unspecified atrial fibrillation; Z79.01 Long term (current) use of anticoagulants; Z79.899 Other long term (current) drug therapy; Z98.84 Bariatric surgery status; Z88.8 Allergy status to other drugs, medicaments and biological substances; Z88.5 Allergy status to narcotic agent; Z91.048 Other nonmedicinal substance allergy status
CPT/HCPCS: 93005; 99285; 96374; 36415; 87040; 87086; 82553; 83690; 85025; 85610; 80053; 81001; 84484; 83605; 71020; 93010; J0696

== ENCOUNTER → 2017-09-06 | Outpatient (CLI) | payer MEDICARE, OTHER ==
--- NOTE | 2017-09-06 16:45 | WOMENS IMAGING REPORT ---
EXAM DESCRIPTION: 3D SCREENING MAMMO BILAT COMPLETED DATE/TIME: 09/06/2017 10:50 am REASON FOR STUDY: SCREENING MAMMO Z12.31 ENCNTR SCREEN MAMMOGRAM FOR MALIGNANT NEOPLASM OF [place] COMPARISON: Multiple since 2008 TECHNIQUE: Standard craniocaudal and mediolateral oblique views of each breast recorded using digita l acquisition and breast tomosynthesis. LIMITATIONS: None. FINDINGS: Findings present which are benign by mammographic criteria. No suspicious masses, calcifi cations or architectural distortion. Pertinent benign findings: Post bilateral breast reduction. Benign calcifications bilaterally. Pace maker artifact over the left upper outer quadrant, port artifact over the right upper outer quadrant Read with the assistance of CAD. .[facility] - R2 Cenova Version 1.3 .[facility] Imaging - R2 Cenova Version 1.3 .[facility] Imaging - R2 Cenova Version 2.4 .[facility] - R2 Cenova Version 2.4 .[facility] - R2 Ophthalmic Technologist Version 9.2 Benign mammographic findings may include one or more of the following: Smooth masses, popcorn/rim/co arse calcifications, asymmetries, post-procedure changes, and lesions with long-standing stability. IMPRESSION: BENIGN MAMMOGRAPHIC FINDINGS. BIRADS 2 BREAST DENSITY: a. The breasts are almost entirely fatty. BIRAD: 2 BENIGN FINDING(S) RECOMMENDATION: RECOMMENDATION: ROUTINE SCREENING Please continue yearly bilateral screening tomosynthesis in August 2018 COMMENT: The patient has been notified of the results by letter per SA requirements. Additional no tification policies are in place for contacting patient with suspicious or incomplete findings. Quality ID #[id number]: The [employer] recommends an annual screening mammogram for women aged 40 years or over. This facility utilizes a reminder system to ensure that all patients receive reminder letters, and/or direct phone calls for appointments. This includes reminders for routine scr eening mammograms, diagnostic mammograms, or other Breast Imaging Interventions when appropriate. Th is patient will be placed in the appropriate reminder system. The [employer] (ACR) has developed recommendations for screening MRI of the breast s in certain patient populations, to be used in conjunction with mammography. Breast MRI surveillanc e may be appropriate for women with more than 20% lifetime risk of developing breast cancer as deter mined by genetic testing, significant family history of the disease, or history of mantle radiation f or Hodgkins Disease. ACR Practice Guidelines 2008. DBT Technology DBT is a type of tomographic mammography. With conventional mammography, overlapping breast tissue ma y make lesions difficult to detect, even with good compression. DBT uses an x-ray tube that rotates a round the breast, taking images at different angles. These images are then combined to create thin sl ices of the breast that the radiologist can view as a 3D reconstruction. The Hologic unit can perform full-field digital mammograms (2D imaging); or DBT (3D imaging); or both, in a combination mode that quickly performs both the mammogram and the tomosynthesis scan while the breast is still compressed. PQRS 6045F: Fluoroscopic imaging is not utilized for breast tomosynthesis. TECHNICAL DOCUMENTATION: FINDING NUMBER: (1) ASSESSMENT: (1) JOB ID: [id number] [employer]- All Rights Reserved
== END ==
LOC: WI 09:05
PROVIDERS: ATTEND Physician Assistant
DX: Z12.31 Encounter for screening mammogram for malignant neoplasm of breast (principal)
CPT/HCPCS: 77063; G0202; 77067

== ENCOUNTER 2017-10-28 15:02 | Emergency (ER) | payer MEDICARE, OTHER ==
--- NOTE | 2017-10-28 15:26 | ER Document Report ---
ED Seizure - General Chief Complaint: Probable Seizure Stated Complaint: PROBABLE SEIZURE Time Seen by Provider: 10/28/17 15:13 Mode of Arrival: Medic Information source: Patient - HPI Notes: 62-year-old female with history of seizure disorder on Broviac and Tegretol, atrial fibrillation and CHF, presents with seizure at home. Unclear apparently how long the seizure lasted as the patient did not realize it except she felt her normal postictal symptoms afterwards which includes mild nausea and lightheadedness. She has no headache. Denies any injury trauma or pain. She does admit to poor sleep as newlyweds that are staying at her house state out with her car until approximately 2 AM and she was somewhat upset by this and did not sleep. She has taken all of her medications as she is supposed to for the day and has missed her recent doses. Denies any medication changes. She is on Xarelto for atrial fibrillation but has had no bleeding. Denies recent illness, nausea vomiting diarrhea, cough shortness of breath or chest discomfort. Denies any neurologic symptoms. Prior to the seizure as she felt her normal postictal symptoms including headache, she stimulated her nerve stimulator but it did not apparently work. She is seen in [place] for this and has a local neurologist here as well. - Related Data Allergies/Adverse Reactions: atropine [Atropine] Allergy (Verified 07/16/17 00:35) codeine [Codeine] Allergy (Verified 07/16/17 00:35) doxepin [Doxepin] Allergy (Verified 07/16/17 00:35) fluoxetine HCl [From Prozac] Allergy (Verified 07/16/17 00:35) hydroxyzine pamoate [From Vistaril] Allergy (Verified 07/16/17 00:35) indomethacin [Indomethacin] Allergy (Verified 07/16/17 00:35) lamotrigine [From Lamictal] Allergy (Verified 07/16/17 00:35) lithium [[place]] Allergy (Verified 07/16/17 00:35) methocarbamol [Methocarbamol] Allergy (Verified 07/16/17 00:35) bleach Allergy (Uncoded 07/16/17 00:35) Past Medical History - Social History Smoking Status: Never Smoker Family History: Reviewed & Not Pertinent, CAD, CVA - Past Medical History Cardiac Medical History: Reports: Hx Atrial Fibrillation, Hx Congestive Heart Failure, Hx Coronary Artery Disease, Hx Hypercholesterolemia, Hx Hypertension, Hx Heart Murmur Denies: Hx Heart Attack, Hx Peripheral Vascular Disease, Hx Pulmonary Embolism Pulmonary Medical History: Reports: Hx Sleep Apnea - Uncertain settings; no home O2 Denies: Hx Asthma, Hx Bronchitis, Hx COPD, Hx Pneumonia, Hx Respiratory Failure, Hx Tuberculosis Neurological Medical History: Reports: Hx Cerebrovascular Accident, Hx Migraine , Hx Seizures Endocrine Medical History: Reports: Hx Hypothyroidism. Denies: Hx Diabetes Mellitus Type 1, Hx Diabetes Mellitus Type 2, Hx Graves' Disease, Hx Hyperthyroidism Renal/ Medical History: Reports: Hx Kidney Stones. Denies: Hx End Stage Renal Disease, Hx Peritoneal Dialysis Malignancy Medical History: Denies: Hx Leukemia, Hx Lung Cancer GI Medical History: Reports: Hx Gastroesophageal Reflux Disease, Hx Irritable Bowel. Denies: Hx Cirrhosis, Hx Crohn's Disease, Hx Hepatitis, Hx Liver Failure , Hx Pancreatitis Musculoskeltal Medical History: Denies Hx Arthritis, Reports Hx Fibromyalgia, Denies Hx Multiple Sclerosis, Denies Hx Muscular Dystrophy Psychiatric Medical History: Reports: Hx Anxiety, Hx Bipolar Disorder, Hx Depression Denies: Hx Dementia, Hx Post Traumatic Stress Disorder, Hx Schizophrenia Traumatic Medical History: Denies: Hx Fractures Infectious Medical History: Denies: Hx Hepatitis Past Surgical History: Reports: Hx Abdominal Surgery - Abdominoplasty after a gastric bypass, Hx Appendectomy, Hx Breast Surgery - breast reduction, Hx Cardiac Catheterization - x3, Hx Cholecystectomy, Hx Gastric Bypass Surgery, Hx Hysterectomy, Hx Orthopedic Surgery - R ankle, Hx Vascular Surgery - PORT. Denies: Hx Bowel Surgery, Hx Section, Hx Colostomy, Hx Coronary Artery Bypass Graft, Hx Herniorrhaphy, Hx Mastectomy, Hx Pacemaker, Hx Tonsillectomy, Hx Tubal Ligation - Immunizations Immunizations up to date: Yes Hx Diphtheria, Pertussis, Tetanus Vaccination: Yes Hx Pneumococcal Vaccination: 01/17/13 Review of Systems - Review of Systems -: Yes All other systems reviewed and negative Physical Exam - Vital signs Notes: See nurse's notes. - Notes Notes: GENERAL: VS as per nursing doc. Well-appearing, well-nourished and in no acute distress. HEAD: Atraumatic, normocephalic. EYES: Pupils equal round and reactive to light, extraocular movements intact, sclera anicteric, no conjunctival injection or discharge. ENT: Nares patent, oropharynx clear without exudates. Moist mucous membranes. NECK: Normal range of motion, supple, no carotid bruits. LUNGS: Breath sounds clear to auscultation bilaterally and equal. No wheezes rales or rhonchi. HEART: Normal S1S2. Regular rate and rhythm with diffuse systolic murmur noted. Equal peripheral pulses. ABDOMEN: Soft, non-tender. EXTREMITIES: No significant range of motion limitations. No edema. NEUROLOGICAL: GCS 15, Cranial nerves II-XII intact. Normal visual marx. Normal speech without aphasia. No pronator drift. 5/5 RUE strength, 5/5 RLE strength, 5/5 LUE strength, 5/5 LLE strength. No cerebellar abnormalities including normal finger-nose testing. Negative Babinski, 1+= DTR refelexes. PSYCH: Normal mood, normal affect. SKIN: Warm, Dry, no cyanosis, Cap refill < 2 sec.
[2017-10-28 16:32] LABS: ABSOLUTE EOSINOPHILS # (AUTO) 0.1 10^3/uL (0.0-0.6); ABSOLUTE LYMPHOCYTES (AUTO) 2.2 10^3/uL (0.5-4.7); ABSOLUTE MONOCYTES (AUTO) 0.6 10^3/uL (0.1-1.4); ABSOLUTE NEUT (AUTO) 2.5 10^3/uL (1.7-8.2); BASOPHILS % (AUTO) 0.6 % (0-2); EOSINOPHILS % (AUTO) 2.2 % (0-6); HEMATOCRIT 38.3 % (36.0-47.0); HGB HCT DIFFERENCE 0.7; MEAN CORPUSCULAR HEMOGLOBIN 32.4 pg (27.0-33.4); MEAN CORPUSCULAR VOLUME 95 fl (80-97); RED BLOOD COUNT 4.02 10^6/uL (3.72-5.28); RED CELL DISTRIBUTION WIDTH 13.3 % (11.5-14.0); SEGMENTED NEUTROPHILS % (AUTO) 46.2 % (42-78); WHITE BLOOD COUNT 5.4 10^3/uL (4.0-10.5)
[2017-10-28 16:41] LABS: ANION GAP 10 (5-19); BLOOD UREA NITROGEN 17 mg/dL (7-20); CALCIUM 8.7 mg/dL (8.4-10.2); CARBON DIOXIDE 30 mmol/L (22-30); CHLORIDE 105 mmol/L (98-107); CREATININE RESULT 0.77 mg/dL (0.52-1.25); GLUCOSE 94 mg/dL (75-110); MAGNESIUM 1.9 mg/dL (1.6-2.3); POTASSIUM 3.3 mmol/L (3.6-5.0)
[2017-10-28] MEDS ORDERED: POTASSIUM CHLORIDE 10 MEQ TABLET.SA PO ONE (16:44)
[2017-10-28] MEDS ORDERED: LORAZEPAM INJ 2 MG/1 ML VIAL IV ONE (18:34)
--- NOTE | 2017-10-28 18:35 | RADIOLOGY REPORT (SQ) ---
EXAM DESCRIPTION: CHEST PA/LAT COMPLETED DATE/TIME: 10/28/2017 6:25 pm REASON FOR STUDY: SOB COMPARISON: 07/04/2017 EXAM PARAMETERS: NUMBER OF VIEWS: two views TECHNIQUE: Digital Frontal and Lateral radiographic views of the chest acquired. RADIATION DOSE: NA LIMITATIONS: none FINDINGS: LUNGS AND PLEURA: No acute opacities, masses or pneumothorax. No pleural effusion. MEDIASTINUM AND HILAR STRUCTURES: Stable. HEART AND VASCULAR STRUCTURES: Heart normal size. No evidence for failure. BONES: No acute findings. HARDWARE: Right chest port. Left chest-neck nerve stimulator. OTHER: No other significant finding. IMPRESSION: No acute findings. TECHNICAL DOCUMENTATION: JOB ID: [id number] [id number] [employer]- All Rights Reserved
[2017-10-28 21:06] VITALS: BP 101/51
--- NOTE | 2017-10-28 22:40 | EKG REPORT ---
SEVERITY:- ABNORMAL ECG - SINUS RHYTHM LEFT VENTRICULAR HYPERTROPHY : Confirmed by: Radha Rojas 28-Oct-2017 22:39:32
== END 2017-10-28 21:08 | disposition home or self-care (01) ==
LOC: ER 15:02
DX: G40.909 Epilepsy, unspecified, not intractable, without status epilepticus (principal); Z79.899 Other long term (current) drug therapy; E87.6 Hypokalemia; I48.91 Unspecified atrial fibrillation; Z79.01 Long term (current) use of anticoagulants; I10 Essential (primary) hypertension; R01.1 Cardiac murmur, unspecified; I25.10 Atherosclerotic heart disease of native coronary artery without angina pectoris; Z88.5 Allergy status to narcotic agent; Z88.8 Allergy status to other drugs, medicaments and biological substances; Z91.048 Other nonmedicinal substance allergy status; Z86.73 Personal history of transient ischemic attack (TIA), and cerebral infarction without residual deficits
CPT/HCPCS: 93005; 99284; 96374; 36415; 83735; 80156; 85025; 80048; 71020; 93010; J2060; A9270

== ENCOUNTER 2018-01-07 11:35 | Emergency (ER) | payer MEDICARE, OTHER ==
[2018-01-07] MEDS ORDERED: NORMAL SALINE 1000 ML 1,000 ML IV ONE (12:14)
[2018-01-07] MEDS ORDERED: KETOROLAC TROMETHAMINE INJ/PF 30 MG/1 ML SDV IV ONE (12:14)
[2018-01-07] MEDS ORDERED: LORAZEPAM INJ 2 MG/1 ML VIAL IV ONE (12:50)
[2018-01-07 13:10] LABS: ABSOLUTE EOSINOPHILS # (AUTO) 0.1 10^3/uL (0.0-0.6); ABSOLUTE LYMPHOCYTES (AUTO) 2.2 10^3/uL (0.5-4.7); ABSOLUTE MONOCYTES (AUTO) 0.5 10^3/uL (0.1-1.4); ABSOLUTE NEUT (AUTO) 1.8 10^3/uL (1.7-8.2); BASOPHILS % (AUTO) 0.7 % (0-2); EOSINOPHILS % (AUTO) 2.2 % (0-6); HEMATOCRIT 36.7 % (36.0-47.0); HEMOGLOBIN 12.3 g/dL (12.0-15.5); LYMPHOCYTES % (AUTO) 48.2 % (13-45); MEAN CORPUSCULAR HEMOGLOBIN 32.3 pg (27.0-33.4); MEAN CORPUSCULAR HGB CONC 33.4 g/dL (32.0-36.0); MEAN CORPUSCULAR VOLUME 97 fl (80-97); MONOCYTES % (AUTO) 10.2 % (3-13); PLATELET COUNT 153 10^3/uL (150-450); RED BLOOD COUNT 3.79 10^6/uL (3.72-5.28); RED CELL DISTRIBUTION WIDTH 13.3 % (11.5-14.0); SEGMENTED NEUTROPHILS % (AUTO) 38.7 % (42-78); TOTAL CELLS COUNTED % (AUTO) 100 %; WHITE BLOOD COUNT 4.7 10^3/uL (4.0-10.5)
[2018-01-07 13:28] LABS: ALANINE AMINOTRANSFERASE 39 U/L (9-52); ALBUMIN 3.2 g/dL (3.5-5.0); ALKALINE PHOSPHATASE 117 U/L (38-126); ANION GAP 7 (5-19); ASPARTATE AMINO TRANSFERASE 41 U/L (14-36); BILIRUBIN,DIRECT 0.2 mg/dL (0.0-0.4); BILIRUBIN,TOTAL 0.2 mg/dL (0.2-1.3); BLOOD UREA NITROGEN 21 mg/dL (7-20); CALCIUM 8.2 mg/dL (8.4-10.2); CARBON DIOXIDE 28 mmol/L (22-30); CHLORIDE 109 mmol/L (98-107); GLUCOSE 130 mg/dL (75-110); POTASSIUM 3.4 mmol/L (3.6-5.0); SODIUM 144.3 mmol/L (137-145); TOTAL PROTEIN 6.2 g/dL (6.3-8.2)
--- NOTE | 2018-01-07 13:36 | EKG REPORT ---
SEVERITY:- ABNORMAL ECG - SINUS BRADYCARDIA LEFT VENTRICULAR HYPERTROPHY : Confirmed by: Junior Ahn MD 07-Jan-2018 13:34:53
--- NOTE | 2018-01-07 14:44 | ER Document Report ---
ED Dizziness/Weakness - General Chief Complaint: Weakness Stated Complaint: WEAKNESS Time Seen by Provider: 01/07/18 12:01 Mode of Arrival: Medic Information source: Patient, Relative Notes: Patient is a 62-year-old female who presents to the ER today for having a seizure while trying to get an iron transfusion at the oncologist office. Patient also saw her neurologist this morning who increased or as patient words it "turned up" her vasal nerve stimulator that she had placed in July for her increased seizures. Patient is an epileptic. Patient is also on Tegretol and Briviact daily for seizures. Patient states that she has had her patient vasal nerve stimulator turned up multiple times before and has never had an issue. Pt just started taking iron transfusions over the past 2 months and has had an increase in seizures. She is alert and oriented at this time, did not bite her tongue or urinate on herself. Relatives describe her seizure this morning as her stiffening up and gazing off to the right which is normal for her. She sees the oncologist just for iron deficiency anemia, she does not have cancer. TRAVEL OUTSIDE OF THE [place] IN LAST 30 DAYS: No - Related Data Allergies/Adverse Reactions: atropine [Atropine] Allergy (Verified 07/16/17 00:35) codeine [Codeine] Allergy (Verified 07/16/17 00:35) doxepin [Doxepin] Allergy (Verified 07/16/17 00:35) fluoxetine HCl [From Prozac] Allergy (Verified 07/16/17 00:35) hydroxyzine pamoate [From Vistaril] Allergy (Verified 07/16/17 00:35) indomethacin [Indomethacin] Allergy (Verified 07/16/17 00:35) lamotrigine [From Lamictal] Allergy (Verified 07/16/17 00:35) lithium [[place]] Allergy (Verified 07/16/17 00:35) methocarbamol [Methocarbamol] Allergy (Verified 07/16/17 00:35) bleach Allergy (Uncoded 07/16/17 00:35) Past Medical History - General Information source: Patient, Relative - Social History Smoking Status: Unknown if Ever Smoked Family History: Reviewed & Not Pertinent, CAD, CVA Patient has suicidal ideation: No Patient has homicidal ideation: No - Past Medical History Cardiac Medical History: Reports: Hx Atrial Fibrillation, Hx Congestive Heart Failure, Hx Coronary Artery Disease, Hx Hypercholesterolemia, Hx Hypertension, Hx Heart Murmur Denies: Hx Heart Attack, Hx Peripheral Vascular Disease, Hx Pulmonary Embolism Pulmonary Medical History: Reports: Hx Sleep Apnea - Uncertain settings; no home O2 Denies: Hx Asthma, Hx Bronchitis, Hx COPD, Hx Pneumonia, Hx Respiratory Failure, Hx Tuberculosis Neurological Medical History: Reports: Hx Cerebrovascular Accident, Hx Migraine , Hx Seizures Endocrine Medical History: Reports: Hx Hypothyroidism. Denies: Hx Diabetes Mellitus Type 1, Hx Diabetes Mellitus Type 2, Hx Graves' Disease, Hx Hyperthyroidism Renal/ Medical History: Reports: Hx Kidney Stones. Denies: Hx End Stage Renal Disease, Hx Peritoneal Dialysis Malignancy Medical History: Denies: Hx Leukemia, Hx Lung Cancer GI Medical History: Reports: Hx Gastroesophageal Reflux Disease, Hx Irritable Bowel. Denies: Hx Cirrhosis, Hx Crohn's Disease, Hx Hepatitis, Hx Liver Failure , Hx Pancreatitis Musculoskeltal Medical History: Denies Hx Arthritis, Reports Hx Fibromyalgia, Denies Hx Multiple Sclerosis, Denies Hx Muscular Dystrophy Psychiatric Medical History: Reports: Hx Anxiety, Hx Bipolar Disorder, Hx Depression Denies: Hx Dementia, Hx Post Traumatic Stress Disorder, Hx Schizophrenia Traumatic Medical History: Denies: Hx Fractures Infectious Medical History: Denies: Hx Hepatitis Past Surgical History: Reports: Hx Abdominal Surgery - Abdominoplasty after a gastric bypass, Hx Appendectomy, Hx Breast Surgery - breast reduction, Hx Cardiac Catheterization - x3, Hx Cholecystectomy, Hx Gastric Bypass Surgery, Hx Hysterectomy, Hx Orthopedic Surgery - R ankle, Hx Vascular Surgery - PORT. Denies: Hx Bowel Surgery, Hx Section, Hx Colostomy, Hx Coronary Artery Bypass Graft, Hx Herniorrhaphy, Hx Mastectomy, Hx Pacemaker, Hx Tonsillectomy, Hx Tubal Ligation - Immunizations Immunizations up to date: Yes Hx Diphtheria, Pertussis, Tetanus Vaccination: Yes Hx Pneumococcal Vaccination: 01/17/13 Review of Systems - Review of Systems Constitutional: No symptoms reported EENT: No symptoms reported Cardiovascular: No symptoms reported Respiratory: No symptoms reported Gastrointestinal: No symptoms reported Genitourinary: No symptoms reported Female Genitourinary: No symptoms reported Musculoskeletal: No symptoms reported Skin: No symptoms reported Hematologic/Lymphatic: No symptoms reported Neurological/Psychological: See HPI Physical Exam - Vital signs Vitals: Temp 97.3 F 01/07/18 11:55 - Notes Notes: PHYSICAL EXAMINATION: GENERAL: Tired appearing, but in no acute distress. HEAD: Atraumatic, normocephalic. EYES: Pupils equal round and reactive to light, extraocular movements intact, sclera anicteric, conjunctiva are normal. NECK: Normal range of motion, supple without lymphadenopathy LUNGS: CTAB and equal. No wheezes rales or rhonchi. HEART: Regular rate and rhythm without murmurs ABDOMEN: Soft, no tenderness. No guarding, no rebound BACK: no vertebral tenderness, normal ROM GI/: no CVA tenderness EXTREMITIES: Normal range of motion, no pitting edema. No cyanosis. NEUROLOGICAL: Cranial nerves grossly intact. Normal sensory/motor exams. PSYCH: Normal mood, normal affect. SKIN: Warm, Dry, normal turgor, no rashes or lesions noted Course - Re-evaluation Re-evalutation: 01/07/18 14:48 Lab work is unremarkable at this time, patient did have another small seizure here for approximately 20 seconds where she stiffened and gaze off to the right. Relatives again state that this is normal for her seizure activity. I did speak to the nurse practitioner Dr. Holbrook's office who increased her vasal nerve stimulator this morning who states that this is normal for patient and that she thinks it has nothing to do with "turning up" the vasal nerve stimulator. She wanted to follow-up with her in the office this week. Patient did receive fluids, something for her headache and Ativan here after her seizure in the ER. - Vital Signs Vital signs: Temp Pulse Resp BP Pulse Ox 97.3 F 01/07/18 11:55 - Laboratory Result Diagrams: 01/07/18 12:01 01/07/18 12:01 Laboratory results interpreted by me: 01/07/18 01/07/18 12:01 12:01 Seg Neutrophils % 38.7 L Lymphocytes % 48.2 H Potassium 3.4 L Chloride 109 H BUN 21 H Glucose 130 H Calcium 8.2 L AST 41 H Total Protein 6.2 L Albumin 3.2 L Discharge - Discharge Clinical Impression: Seizure disorder Condition: Stable Disposition: HOME, SELF-CARE Additional Instructions: Return immediately for any new or worsening symptoms. Follow up with primary care provider, call tomorrow to make followup appointment. Your neurologist would like to see you this week, please call tomorrow to make an appointment. Referrals: JENNIFER DIAMOND PA [Primary Care Provider] - Follow up as needed
[2018-01-07 15:39] VITALS: BP 117/61
== END 2018-01-07 15:38 | disposition home or self-care (01) ==
LOC: ER 11:35
DX: G40.909 Epilepsy, unspecified, not intractable, without status epilepticus (principal); R53.1 Weakness; Z79.899 Other long term (current) drug therapy
CPT/HCPCS: 93005; 36591; 99284; 96361; 96374; 96375; 36415; 80156; 85025; 80053; 93010; J1885; J2060; J7030

== ENCOUNTER 2018-07-03 18:12 | Emergency (ER) | payer MEDICARE ==
--- NOTE | 2018-07-03 19:00 | ER Document Report ---
ED Extremity Problem, Upper - General Chief Complaint: Arm Pain Stated Complaint: RIGHT ARM PAIN Time Seen by Provider: 07/03/18 18:56 Mode of Arrival: Ambulatory Information source: Patient Notes: Chief complaint: Right proximal forearm swelling and pain History of complain:( obtained from----patient) 63 years old female presents today with a bout of sudden onset since this morning. Which is painful noted and not. Each was over the proximal forearm on the flexor surface just distal to the elbow joint. Denies any difficulty in flexion and extension of the elbow. Denies any injury. Denies any difficulty in breathing. Onset: As above sudden Duration: Since this morning Severity: Mild Quality: Sharp Context: Unknown Exacerbating factor and relieving factors: None REVIEW OF SYSTEMS: CONSTITUTIONAL : Denies fever, chills, or sweats. Denies recent illness. EENT: Denies eye, ear, throat, or mouth pain or symptoms. Denies nasal or sinus congestion or discharge. Denies throat, tongue, or mouth swelling or difficulty swallowing. CARDIOVASCULAR: Denies chest pain. Denies palpitations or racing or irregular heart beat. Denies ankle edema. RESPIRATORY: Denies cough, cold, or chest congestion. Denies shortness of breath, difficulty breathing, or wheezing. GASTROINTESTINAL: Denies distention. Denies nausea, vomiting, or diarrhea. Denies blood in vomitus, stools, or per rectum. Denies black, tarry stools. Denies constipation. GENITOURINARY: Denies difficulty urinating, painful urination, burning, frequency, blood in urine, or discharge. FEMALE GENITOURINARY: Denies vaginal bleeding, heavy or abnormal periods, irregular periods. Denies vaginal discharge or odor. MUSCULOSKELETAL: Denies back or neck pain or stiffness. Denies joint pain or swelling. SKIN: Denies rash, lesions or sores. HEMATOLOGIC : Denies easy bruising or bleeding. LYMPHATIC: Denies swollen, enlarged glands. NEUROLOGICAL: Denies confusion or altered mental status. Denies passing out or loss of consciousness. Denies dizziness or lightheadedness. Denies headache. Denies weakness or paralysis or loss of use of either side. Denies problems with gait or speech. Denies sensory loss, numbness, or tingling. Denies seizures. PSYCHIATRIC: Denies anxiety or stress. Denies depression, suicidal ideation, or homicidal ideation. ALL OTHER SYSTEMS REVIEWED AND NEGATIVE. PHYSICAL EXAMINATION: GENERAL: Well-appearing, well-nourished and in no acute distress. HEAD: Atraumatic, normocephalic. EYES: Pupils equal round and reactive to light, extraocular movements intact, conjunctiva are normal. ENT: Nares patent, oropharynx clear without exudates. Moist mucous membranes. NECK: Normal range of motion, supple without lymphadenopathy LUNGS: Breath sounds clear to auscultation bilaterally and equal. No wheezes rales or rhonchi. HEART: Regular rate and rhythm without murmurs ABDOMEN: Soft, nontender, nondistended abdomen. No guarding, no rebound. No masses appreciated. Examination of genitals-deferred Musculoskeletal: Right forearm, over the flexors surface, proximal to the elbow swelling noted with obtained palpable venous cord. NEUROLOGICAL: Cranial nerves grossly intact. Normal speech, normal gait. Normal sensory, motor exams PSYCH: Normal mood, normal affect. SKIN: Warm, Dry, normal turgor, no rashes or lesions noted. 19:40 While waiting in the ED suddenly she became short of breath and when started having chest pain which is severe. Therefore she was moved to the trauma room. Dictation was performed using [employer] voice recognition software TRAVEL OUTSIDE OF THE [place] IN LAST 30 DAYS: No - HPI Notes: Dictated - Related Data Allergies/Adverse Reactions: atropine [Atropine] Allergy (Verified 07/03/18 18:50) codeine [Codeine] Allergy (Verified 07/03/18 18:50) doxepin [Doxepin] Allergy (Verified 07/03/18 18:50) fluoxetine HCl [From Prozac] Allergy (Verified 07/03/18 18:50) hydroxyzine pamoate [From Vistaril] Allergy (Verified 07/03/18 18:50) indomethacin [Indomethacin] Allergy (Verified 07/03/18 18:50) lamotrigine [From Lamictal] Allergy (Verified 07/03/18 18:50) lithium [[place]] Allergy (Verified 07/03/18 18:50) methocarbamol [Methocarbamol] Allergy (Verified 07/03/18 18:50) bleach Allergy (Uncoded 07/03/18 18:50) Past Medical History - Social History Smoking Status: Never Smoker Cigarette use (# per day): No Chew tobacco use (# tins/day): No Frequency of alcohol use: Rare Drug Abuse: None Lives with: Family Family History: Reviewed & Not Pertinent, CAD, CVA - Past Medical History Cardiac Medical History: Reports: Hx Atrial Fibrillation, Hx Congestive Heart Failure, Hx Coronary Artery Disease, Hx Hypercholesterolemia, Hx Hypertension, Hx Heart Murmur Denies: Hx Heart Attack, Hx Peripheral Vascular Disease, Hx Pulmonary Embolism Pulmonary Medical History: Reports: Hx Sleep Apnea - Uncertain settings; no home O2 Denies: Hx Asthma, Hx Bronchitis, Hx COPD, Hx Pneumonia, Hx Respiratory Failure, Hx Tuberculosis Neurological Medical History: Reports: Hx Cerebrovascular Accident, Hx Migraine , Hx Seizures Endocrine Medical History: Reports: Hx Hypothyroidism. Denies: Hx Diabetes Mellitus Type 1, Hx Diabetes Mellitus Type 2, Hx Graves' Disease, Hx Hyperthyroidism Renal/ Medical History: Reports: Hx Kidney Stones. Denies: Hx End Stage Renal Disease, Hx Peritoneal Dialysis Malignancy Medical History: Denies: Hx Leukemia, Hx Lung Cancer GI Medical History: Reports: Hx Gastroesophageal Reflux Disease, Hx Irritable Bowel. Denies: Hx Cirrhosis, Hx Crohn's Disease, Hx Hepatitis, Hx Liver Failure , Hx Pancreatitis Musculoskeletal Medical History: Denies Hx Arthritis, Reports Hx Fibromyalgia, Denies Hx Multiple Sclerosis, Denies Hx Muscular Dystrophy Psychiatric Medical History: Reports: Hx Anxiety, Hx Bipolar Disorder, Hx Depression Denies: Hx Dementia, Hx Post Traumatic Stress Disorder, Hx Schizophrenia Traumatic Medical History: Denies: Hx Fractures Infectious Medical History: Denies: Hx Hepatitis Past Surgical History: Reports: Hx Abdominal Surgery - Abdominoplasty after a gastric bypass, Hx Appendectomy, Hx Breast Surgery - breast reduction, Hx Cardiac Catheterization - x3, Hx Cholecystectomy, Hx Gastric Bypass Surgery, Hx Hysterectomy, Hx Orthopedic Surgery - R ankle, Hx Vascular Surgery - PORT. Denies: Hx Bowel Surgery, Hx Section, Hx Colostomy, Hx Coronary Artery Bypass Graft, Hx Herniorrhaphy, Hx Mastectomy, Hx Pacemaker, Hx Tonsillectomy, Hx Tubal Ligation - Immunizations Immunizations up to date: Yes Hx Diphtheria, Pertussis, Tetanus Vaccination: Yes Hx Pneumococcal Vaccination: 01/17/13 Review of Systems - Review of Systems Notes: Dictated Physical Exam - Vital signs Vitals: Temp Pulse Resp BP Pulse Ox 98.2 F 61 14 128/55 H 95 07/03/18 18:22 07/03/18 18:22 07/03/18 18:22 07/03/18 18:22 07/03/18 18:22 - Notes Notes: Dictated Course - Vital Signs Vital signs: Temp Pulse Resp BP Pulse Ox 98.2 F 61 14 128/55 H 95 07/03/18 18:22 07/03/18 18:22 07/03/18 18:22 07/03/18 18:22 07/03/18 18:22 Discharge - Discharge Referrals: JENNIFER DIAMOND PA [Primary Care Provider] - Follow up as needed
[2018-07-03 20:03] LABS: ABSOLUTE BASOPHILS # (AUTO) 0.1 10^3/uL (0.0-0.2); ABSOLUTE EOSINOPHILS # (AUTO) 0.2 10^3/uL (0.0-0.6); ABSOLUTE LYMPHOCYTES (AUTO) 3.4 10^3/uL (0.5-4.7); ABSOLUTE MONOCYTES (AUTO) 0.7 10^3/uL (0.1-1.4); ABSOLUTE NEUT (AUTO) 3.2 10^3/uL (1.7-8.2); BASOPHILS % (AUTO) 0.7 % (0-2); EOSINOPHILS % (AUTO) 2.3 % (0-6); HEMATOCRIT 42.1 % (36.0-47.0); HEMOGLOBIN 14.1 g/dL (12.0-15.5); LYMPHOCYTES % (AUTO) 45.2 % (13-45); MEAN CORPUSCULAR HEMOGLOBIN 32.4 pg (27.0-33.4); MEAN CORPUSCULAR HGB CONC 33.4 g/dL (32.0-36.0); MEAN CORPUSCULAR VOLUME 97 fl (80-97); MONOCYTES % (AUTO) 8.9 % (3-13); PLATELET COUNT 170 10^3/uL (150-450); RED BLOOD COUNT 4.34 10^6/uL (3.72-5.28); RED CELL DISTRIBUTION WIDTH 13.3 % (11.5-14.0); SEGMENTED NEUTROPHILS % (AUTO) 42.9 % (42-78); TOTAL CELLS COUNTED % (AUTO) 100 %; WHITE BLOOD COUNT 7.6 10^3/uL (4.0-10.5)
[2018-07-03 20:08] LABS: INTERNATIONAL RATION (INR) 0.98; PROTHROMBIN TIME 13.4 SEC (11.4-15.4)
[2018-07-03 20:16] LABS: ALANINE AMINOTRANSFERASE 35 U/L (9-52); ALBUMIN 4.3 g/dL (3.5-5.0); ALKALINE PHOSPHATASE 139 U/L (38-126); ANION GAP 12 (5-19); ASPARTATE AMINO TRANSFERASE 37 U/L (14-36); BILIRUBIN,DIRECT 0.3 mg/dL (0.0-0.4); BILIRUBIN,TOTAL 0.3 mg/dL (0.2-1.3); BLOOD UREA NITROGEN 20 mg/dL (7-20); CALCIUM 9.2 mg/dL (8.4-10.2); CARBON DIOXIDE 28 mmol/L (22-30); CHLORIDE 106 mmol/L (98-107); CREATINE KINASE 53 U/L (30-135); GLUCOSE 93 mg/dL (75-110); POTASSIUM 3.9 mmol/L (3.6-5.0); SODIUM 146.1 mmol/L (137-145); TOTAL PROTEIN 8.2 g/dL (6.3-8.2)
--- NOTE | 2018-07-03 20:20 | RADIOLOGY REPORT (SQ) ---
EXAM DESCRIPTION: CHEST SINGLE VIEW COMPLETED DATE/TIME: 07/03/2018 8:09 pm REASON FOR STUDY: Shortness of breath COMPARISON: 10/28/2017 EXAM PARAMETERS: NUMBER OF VIEWS: One view. TECHNIQUE: Single frontal radiographic view of the chest acquired. RADIATION DOSE: NA LIMITATIONS: None. FINDINGS: LUNGS AND PLEURA: No opacities, masses or pneumothorax. No pleural effusion. MEDIASTINUM AND HILAR STRUCTURES: No masses. Contour normal. HEART AND VASCULAR STRUCTURES: Heart normal in size. Normal vasculature. BONES: No acute findings. HARDWARE: Venous access catheter tip in the right atrium. Battery device in the left chest. OTHER: No other significant finding. IMPRESSION: NO ACUTE RADIOGRAPHIC FINDING IN THE CHEST. TECHNICAL DOCUMENTATION: JOB ID: [id number] [employer]- All Rights Reserved Reading location - IP/workstation name: [email or web address]
[2018-07-03 20:29] LABS: CREATINE KINASE MB 0.66 ng/mL (<4.55)
[2018-07-03 20:31] LABS: TROPONIN I < 0.012 ng/mL
--- NOTE | 2018-07-03 20:32 | ER Document Report ---
ED General - General Chief Complaint: Arm Pain Stated Complaint: RIGHT ARM PAIN Time Seen by Provider: 07/03/18 18:56 Mode of Arrival: Ambulatory TRAVEL OUTSIDE OF THE [place] IN LAST 30 DAYS: No - HPI Notes: 63-year-old female with multiple medical problems including atrial fibrillation , seizures with vagal nerve stimulator, stroke, hypertension, depression presents with severe right forearm pain upon waking this morning. She denies any injury. No numbness or weakness. No similar pain in the past. Denies history of blood clots. She is on Eliquis for atrial fibrillation. While waiting for an ultrasound in waiting room, patient became acutely short of breath. She felt like she could not get any air in. She did not have any chest pain. She reports having multiple similar episodes to this over the past 6 months. She has been sent to a tube cutter, but no cause has been found. She wears CPAP at night for sleep apnea. She states her seizures are not always typical tonic-clonic. Her vagal nerve stimulator has been controlling her seizures recently. - Related Data Allergies/Adverse Reactions: atropine [Atropine] Allergy (Verified 07/03/18 18:50) codeine [Codeine] Allergy (Verified 07/03/18 18:50) doxepin [Doxepin] Allergy (Verified 07/03/18 18:50) fluoxetine HCl [From Prozac] Allergy (Verified 07/03/18 18:50) hydroxyzine pamoate [From Vistaril] Allergy (Verified 07/03/18 18:50) indomethacin [Indomethacin] Allergy (Verified 07/03/18 18:50) lamotrigine [From Lamictal] Allergy (Verified 07/03/18 18:50) lithium [[place]] Allergy (Verified 07/03/18 18:50) methocarbamol [Methocarbamol] Allergy (Verified 07/03/18 18:50) bleach Allergy (Uncoded 07/03/18 18:50) Past Medical History - General Information source: Patient - Social History Smoking Status: Never Smoker Cigarette use (# per day): No Chew tobacco use (# tins/day): No Frequency of alcohol use: Rare Drug Abuse: None Lives with: Family Family History: Reviewed & Not Pertinent, CAD, CVA Patient has suicidal ideation: No Patient has homicidal ideation: No - Past Medical History Cardiac Medical History: Reports: Hx Atrial Fibrillation, Hx Congestive Heart Failure, Hx Coronary Artery Disease, Hx Hypercholesterolemia, Hx Hypertension, Hx Heart Murmur Denies: Hx Heart Attack, Hx Peripheral Vascular Disease, Hx Pulmonary Embolism Pulmonary Medical History: Reports: Hx Sleep Apnea - Uncertain settings; no home O2 Denies: Hx Asthma, Hx Bronchitis, Hx COPD, Hx Pneumonia, Hx Respiratory Failure, Hx Tuberculosis Neurological Medical History: Reports: Hx Cerebrovascular Accident, Hx Migraine , Hx Seizures Endocrine Medical History: Reports: Hx Hypothyroidism. Denies: Hx Diabetes Mellitus Type 1, Hx Diabetes Mellitus Type 2, Hx Graves' Disease, Hx Hyperthyroidism Renal/ Medical History: Reports: Hx Kidney Stones. Denies: Hx End Stage Renal Disease, Hx Peritoneal Dialysis Malignancy Medical History: Denies: Hx Leukemia, Hx Lung Cancer GI Medical History: Reports: Hx Gastroesophageal Reflux Disease, Hx Irritable Bowel. Denies: Hx Cirrhosis, Hx Crohn's Disease, Hx Hepatitis, Hx Liver Failure , Hx Pancreatitis Musculoskeletal Medical History: Denies Hx Arthritis, Reports Hx Fibromyalgia, Denies Hx Multiple Sclerosis, Denies Hx Muscular Dystrophy Psychiatric Medical History: Reports: Hx Anxiety, Hx Bipolar Disorder, Hx Depression Denies: Hx Dementia, Hx Post Traumatic Stress Disorder, Hx Schizophrenia Traumatic Medical History: Denies: Hx Fractures Infectious Medical History: Denies: Hx Hepatitis Past Surgical History: Reports: Hx Abdominal Surgery - Abdominoplasty after a gastric bypass, Hx Appendectomy, Hx Breast Surgery - breast reduction, Hx Cardiac Catheterization - x3, Hx Cholecystectomy, Hx Gastric Bypass Surgery, Hx Hysterectomy, Hx Orthopedic Surgery - R ankle, Hx Vascular Surgery - PORT. Denies: Hx Bowel Surgery, Hx Section, Hx Colostomy, Hx Coronary Artery Bypass Graft, Hx Herniorrhaphy, Hx Mastectomy, Hx Pacemaker, Hx Tonsillectomy, Hx Tubal Ligation - Immunizations Immunizations up to date: Yes Hx Diphtheria, Pertussis, Tetanus Vaccination: Yes Hx Pneumococcal Vaccination: 01/17/13 Review of Systems - Review of Systems Notes: Constitutional: Negative for fever. HENT: Negative for sore throat. Eyes: Negative for visual changes. Cardiovascular: Negative for chest pain. Respiratory: Positive for shortness of breath. Gastrointestinal: Negative for abdominal pain, vomiting or diarrhea. Genitourinary: Negative for dysuria. Musculoskeletal: Negative for back pain. Positive for right forearm pain Skin: Negative for rash. Neurological: Negative for headaches, weakness or numbness. 10 point ROS negative except as marked above and in HPI. Physical Exam - Vital signs Vitals: Temp Pulse Resp BP Pulse Ox 98.2 F 61 14 128/55 H 95 07/03/18 18:22 07/03/18 18:22 07/03/18 18:22 07/03/18 18:22 07/03/18 18:22 - Notes Notes: PHYSICAL EXAMINATION: GENERAL: Well-appearing, well-nourished and in no acute distress. HEAD: Atraumatic, normocephalic. EYES: Pupils equal round and reactive to light, extraocular movements intact, conjunctiva are normal. ENT: nares patent, oropharynx clear without exudates. Moist mucous membranes. NECK: Normal range of motion, supple without lymphadenopathy LUNGS: Breath sounds clear to auscultation bilaterally and equal. No wheezes rales or rhonchi. HEART: Regular rate and rhythm, no chest wall tenderness ABDOMEN: Soft, nontender, normoactive bowel sounds. No guarding, no rebound. No masses appreciated. EXTREMITIES: Normal range of motion, no pitting or edema. No cyanosis. firm tender cord palpated to right AC region with extension into forearm. Mild warmth. FROM. no joint swelling. no crepitus. NEUROLOGICAL: Cranial nerves grossly intact. Normal speech, normal gait. Normal sensory and motor exams. PSYCH: Normal mood, normal affect. SKIN: Warm, Dry, normal turgor, no rashes or lesions noted. Course - Re-evaluation Re-evalutation: 07/03/18 20:32 We will check ultrasound and CT chest. 07/03/18 22:[address] unremarkable. Labs unremarkable. Very low suspicion for compartment syndrome or necrotizing fasciitis. Given strict return precautions however for these illnesses. Patient sitting in bed comfortable. No severe pain. Afebrile. Will cover with antibiotics for possible early cellulitis. At this time will discharge with return precautions and follow-up recommendations. Verbal discharge instructions given a the bedside and opportunity for questions given. Medication warnings reviewed. Patient is in agreement with this plan and has verbalized understanding of return precautions and the need for primary care follow-up in the next 24-72 hours. - Vital Signs Vital signs: Temp Pulse Resp BP Pulse Ox 98.2 F 61 14 128/55 H 95 07/03/18 18:22 07/03/18 18:22 07/03/18 18:22 07/03/18 18:22 07/03/18 18:22 - Laboratory Result Diagrams: 07/03/18 19:53 07/03/18 19:53 Laboratory results interpreted by me: 07/03/18 07/03/18 19:53 19:53 Lymphocytes % 45.2 H Sodium 146.1 H AST 37 H Alkaline Phosphatase 139 H Discharge - Discharge Clinical Impression: Cellulitis Qualifiers: Site of cellulitis: extremity Site of cellulitis of extremity: upper extremity Laterality: unspecified laterality Qualified Code(s): L03.119 - Cellulitis of unspecified part of limb Dyspnea Qualifiers: Dyspnea type: shortness of breath Qualified Code(s): R06.02 - Shortness of breath; R06.00 - Dyspnea, unspecified; R06.01 - Orthopnea Condition: Stable Disposition: HOME, SELF-CARE Instructions: Cellulitis ([facility]) Additional Instructions: Return for any worsening or concerning symptoms such as severe pain, fever, numbness, color change. Prescriptions: Cephalexin Monohydrate [Keflex 500 mg Capsule] 500 mg PO Q6H 7 Days capsule Referrals: JENNIFER DIAMOND PA [Primary Care Provider] - Follow up in 3-5 days
--- NOTE | 2018-07-03 21:38 | RADIOLOGY REPORT (SQ) ---
EXAM DESCRIPTION: CTA CHEST COMPLETED DATE/TIME: 07/03/2018 9:27 pm REASON FOR STUDY: PE COMPARISON: Chest radiograph TECHNIQUE: CT scan of the chest performed using helical scanning technique with dynamic intravenous contrast injection. Images reviewed with lung, soft tissue and bone windows. Reconstructed coronal and sagittal MPR images reviewed. Additional 3 dimensional post-processing performed to develop Maximal Intensity Projection images (ND P). All images stored on PACS. All CT scanners at this facility use dose modulation, iterative reconstruction, and/or weight based d osing when appropriate to reduce radiation dose to as low as reasonably achievable (ALARA). [facility]: Dose Right [facility]: CareDose [facility]: Dose Right [facility]: Teradose 4D [facility]: [employer] CONTRAST TYPE AND DOSE: contrast/concentration: Isovue 350.00 mg/ml; Total Contrast Delivered: 70.0 ml; Total Saline Delivered: 70.0 ml Contrast bolus adequate for pulmonary arteries and aorta. RENAL FUNCTION: GFR > 60. RADIATION DOSE: CT Rad equipment meets quality standard of care and radiation dose reduction techniq ues were employed. CTDIvol: 14.9 - 17.3 mGy. DLP: 592 mGy-cm. . LIMITATIONS: None. FINDINGS: LUNGS AND PLEURA: No masses, infiltrates, or pneumothorax. No pleural effusions or pleura l calcifications. AORTA AND GREAT VESSELS: No aneurysm. Contrast bolus not optimized for the aorta. HEART: No pericardial effusion. No significant coronary artery calcifications. PULMONARY ARTERIES: No emboli visualized in the main pulmonary arteries or the segmental branches. HILAR AND MEDIASTINAL STRUCTURES: No identified masses or abnormal nodes. HARDWARE: Venous access catheter. UPPER ABDOMEN: No significant findings. Limited exam. THYROID AND OTHER SOFT TISSUES: No masses. No adenopathy. BONES: No acute or significant finding. 3D MIPS: Confirm above findings. OTHER: No other significant finding. IMPRESSION: NORMAL CTA OF THE CHEST. NO PULMONARY EMBOLI. COMMENT: Quality ID # 436: Final reports with documentation of one or more dose reduction techniques (e.g., Automated exposure control, adjustment of the mA and/or kV according to patient size, use of iterative reconstruction technique) TECHNICAL DOCUMENTATION: JOB ID: [id number] [email or web address]- All Rights Reserved Reading location - IP/workstation name: [email or web address]
[2018-07-03 23:08] VITALS: BP 123/79
--- NOTE | 2018-07-04 03:46 | RADIOLOGY REPORT (SQ) ---
EXAM DESCRIPTION: US EXTREMITY VEINS UNILATERAL COMPLETED DATE/TME: 07/03/2018 18:56 CLINICAL HISTORY: 63 years Female, Right forearm thrombosis Comparison: None. LIMITATIONS: None. FINDINGS: Color doppler sonogram including compression maneuvers of the deep venous system of the right upper extremity show no evidence of deep venous thrombus including evaluation of the internal jugular, subclavian, axillary, brachial, radial, ulnar, cephalic, and basilic veins. IMPRESSION: No DVT of the right upper extremity.
--- NOTE | 2018-07-04 07:40 | EKG REPORT ---
SEVERITY:- OTHERWISE NORMAL ECG - SINUS RHYTHM MINIMAL ST DEPRESSION, LATERAL LEADS : Confirmed by: Junior Ahn MD 04-Jul-2018 07:39:24
== END 2018-07-03 23:10 | disposition home or self-care (01) ==
LOC: ER 18:12
DX: L03.119 Cellulitis of unspecified part of limb (principal); R06.02 Shortness of breath; M79.601 Pain in right arm; I48.91 Unspecified atrial fibrillation; I10 Essential (primary) hypertension; F32.9 Major depressive disorder, single episode, unspecified; Z79.01 Long term (current) use of anticoagulants; I25.10 Atherosclerotic heart disease of native coronary artery without angina pectoris
CPT/HCPCS: 36415; 71045; 71275; 80053; 82550; 82553; 82962; 84484; 85025; 85379; 85610; 86141; 93005; 93010; 93971; 99285

== ENCOUNTER → 2018-11-08 | Outpatient (CLI) | payer MEDICARE, OTHER ==
--- NOTE | 2018-11-08 13:23 | WOMENS IMAGING REPORT ---
EXAM DESCRIPTION: 3D SCREENING MAMMO BILAT COMPLETED DATE/TIME: 11/08/2018 9:30 am REASON FOR STUDY: SCREENING MAMMO Z12.31 ENCNTR SCREEN MAMMOGRAM FOR MALIGNANT NEOPLASM OF HEYDI COMPARISON: Multiple since 2008 TECHNIQUE: Standard craniocaudal and mediolateral oblique views of each breast recorded using digita l acquisition and breast tomosynthesis. LIMITATIONS: None. FINDINGS: No masses, calcifications or architectural distortion. No areas of suspicion. Read with the assistance of CAD. .[facility] - R2 [employer] Version 1.3 .[facility] - R2 Cenova Version 1.3 .[facility] - R2 Cenova Version 2.4 .[facility] - R2 Cenova Version 2.4 .[facility] - R2 [employer] Version 9.2 IMPRESSION: NORMAL MAMMOGRAM. BIRADS 1. BREAST DENSITY: b. There are scattered areas of fibroglandular density. BIRAD: 1 NEGATIVE RECOMMENDATION: ROUTINE SCREENING Please continue yearly bilateral screening mammography/tomosynthesis in October 2019 COMMENT: The patient has been notified of the results by letter per SA requirements. Additional no tification policies are in place for contacting patient with suspicious or incomplete findings. Quality ID #[id number]: The [employer] recommends an annual screening mammogram for women aged 40 years or over. This facility utilizes a reminder system to ensure that all patients receive reminder letters, and/or direct phone calls for appointments. This includes reminders for routine scr eening mammograms, diagnostic mammograms, or other Breast Imaging Interventions when appropriate. Th is patient will be placed in the appropriate reminder system. The [employer] (ACR) has developed recommendations for screening MRI of the breast s in certain patient populations, to be used in conjunction with mammography. Breast MRI surveillanc e may be appropriate for women with more than 20% lifetime risk of developing breast cancer as deter mined by genetic testing, significant family history of the disease, or history of mantle radiation f or Hodgkins Disease. ACR Practice Guidelines 2008. DBT Technology DBT is a type of tomographic mammography. With conventional mammography, overlapping breast tissue ma y make lesions difficult to detect, even with good compression. DBT uses an x-ray tube that rotates a round the breast, taking images at different angles. These images are then combined to create thin sl ices of the breast that the radiologist can view as a 3D reconstruction. The LIFX unit can perform full-field digital mammograms (2D imaging); or DBT (3D imaging); or both, in a combination mode that quickly performs both the mammogram and the tomosynthesis scan while the breast is still compressed. PQRS 6045F: Fluoroscopic imaging is not utilized for breast tomosynthesis. TECHNICAL DOCUMENTATION: FINDING NUMBER: (1) ASSESSMENT: (1) JOB ID: [id number] [email or web address]- All Rights Reserved Reading location - IP/workstation name: [facility]-[email or web address]
== END ==
LOC: WI 09:10
PROVIDERS: ATTEND Physician Assistant
DX: Z12.31 Encounter for screening mammogram for malignant neoplasm of breast (principal)
CPT/HCPCS: 77063; 77067

== ENCOUNTER → 2018-12-17 | Outpatient (CLI) | payer MEDICARE, OTHER ==
--- NOTE | 2018-12-17 14:16 | RADIOLOGY REPORT (SQ) ---
EXAM DESCRIPTION: CT ABD/PELVIS WITH IV ORAL COMPLETED DATE/TIME: 12/17/2018 1:14 pm REASON FOR STUDY: EPIGASTRIC PAIN R10.13 EPIGASTRIC PAIN COMPARISON: 12/26/2014 TECHNIQUE: CT scan of the abdomen and pelvis performed using helical scanning technique with dynamic intravenous contrast injection. No oral contrast. Images reviewed with lung, soft tissue, and bone windows. Reconstructed coronal and sagittal MPR images reviewed. Delayed images for evaluation of the urinary system also acquired. All images stored on PACS. All CT scanners at this facility use dose modulation, iterative reconstruction, and/or weight based d osing when appropriate to reduce radiation dose to as low as reasonably achievable (ALARA). [facility]: Dose Right [facility]: CareDose [facility]: Dose Right [facility]: Teradose 4D [facility]: [employer] CONTRAST TYPE AND DOSE: contrast/concentration: Isovue 350.00 mg/ml; Total Contrast Delivered: 99.0 ml; Total Saline Delivered: 72.0 ml 99 cc Omnipaque 350 RENAL FUNCTION: Creatinine 0.7 RADIATION DOSE: CT Rad equipment meets quality standard of care and radiation dose reduction techniq ues were employed. CTDIvol: 14.4 - 16.3 mGy. DLP: 1590 mGy-cm.. LIMITATIONS: None. FINDINGS: LOWER CHEST: No pleural or parenchymal disease. Enlarged heart. Scattered coronary ather osclerosis. Aortic valvular calcifications. LIVER: Normal size. No masses. No dilated ducts. SPLEEN: Normal size. No focal lesions. PANCREAS: No masses. No significant calcifications. No adjacent inflammation or peripancreatic fluid collections. Pancreatic duct not dilated. GALLBLADDER: Surgically absent. ADRENAL GLANDS: No significant masses or asymmetry. RIGHT KIDNEY AND URETER: No solid masses. No significant calcifications. No hydronephrosis or hyd roureter. LEFT KIDNEY AND URETER: No solid masses. Multiple nonobstructing renal stones, largest measuring 6 mm. No hydronephrosis or hydroureter. AORTA AND VESSELS: No aneurysm. No dissection. Renal arteries, SMA, celiac without stenosis. RETROPERITONEUM: No retroperitoneal adenopathy, hemorrhage or masses. BOWEL AND PERITONEAL CAVITY: Status post gastric bypass. No evidence of intestinal obstruction. No focal bowel wall thickening. APPENDIX: Surgically absent. PELVIS: No mass. No free fluid. Normal bladder. Status post hysterectomy. ABDOMINAL WALL: No discrete mass. Evidence of prior midline hernia repair. BONES: No acute bony abnormality. Lower lumbar spondylosis. No suspicious osseous lesions. OTHER: No other significant finding. IMPRESSION: No evidence of acute intra-abdominal/pelvic process. Multiple left-sided renal stones, largest measuring 6 mm. No evidence of obstructive uropathy. TECHNICAL DOCUMENTATION: JOB ID: [id number] Quality ID # [id number]: Final reports with documentation of one or more dose reduction techniques (e.g., Au tomated exposure control, adjustment of the mA and/or kV according to patient size, use of iterative reconstruction technique) 2010 [employer]- All Rights Reserved Reading location - IP/workstation name: [email or web address]-
== END ==
LOC: RAD 11:36
PROVIDERS: ATTEND Internal Medicine Gastroenterology
DX: N20.0 Calculus of kidney (principal); R10.13 Epigastric pain; Z98.84 Bariatric surgery status
CPT/HCPCS: 74177; 82565

== ENCOUNTER 2019-03-20 23:27 | Emergency (ER) | payer MEDICARE, OTHER ==
[2019-03-21] MEDS ORDERED: OXYCODONE-ACETAMINOPHEN 5-325 MG TABLET PO ONE (00:22)
[2019-03-21] MEDS ORDERED: ONDANSETRON 4 MG TAB.RAPDIS PO ONE (00:22)
--- NOTE | 2019-03-21 01:26 | ER Document Report ---
ED General - General Chief Complaint: Back Pain Stated Complaint: ABDOMINAL PAIN AND MUSCLE SPASMS Time Seen by Provider: 03/21/19 00:06 Primary Care Provider: JENNIFER CELIS PA-C [Primary Care Provider] - Follow up as needed TRAVEL OUTSIDE OF THE [place] IN LAST 30 DAYS: No - HPI Notes: Patient is a 63-year-old female who presents to the emergency department for evaluation. 6 days ago she was in her room. The lights have been turned off, she tripped and fell, striking the left side of her chest on a dresser. She states she did hit the left side of her head. She was not knocked out. She denies any neck or back pain. She states she saw her doctor on Sunday. She had x-rays which failed to reveal any fracture. She states she had talked to her doctor about pain medication, and states that her doctor was "afraid to give her any more medicine considering what she is already on. She states that she was laying in bed tonight and she had an increase in pain. She could not get comfortable. She states she felt slightly short of breath. She denies any dizziness. No hematuria. Moving her bowels normally. - Related Data Allergies/Adverse Reactions: atropine [Atropine] Allergy (Verified 07/03/18 18:50) codeine [Codeine] Allergy (Verified 07/03/18 18:50) doxepin [Doxepin] Allergy (Verified 07/03/18 18:50) fluoxetine HCl [From Prozac] Allergy (Verified 07/03/18 18:50) hydroxyzine pamoate [From Vistaril] Allergy (Verified 07/03/18 18:50) indomethacin [Indomethacin] Allergy (Verified 07/03/18 18:50) lamotrigine [From Lamictal] Allergy (Verified 07/03/18 18:50) lithium [[place]] Allergy (Verified 07/03/18 18:50) methocarbamol [Methocarbamol] Allergy (Verified 07/03/18 18:50) bleach Allergy (Uncoded 07/03/18 18:50) Past Medical History - General Information source: Patient - Social History Smoking Status: Never Smoker Frequency of alcohol use: None Drug Abuse: None Family History: Reviewed & Not Pertinent, CAD, CVA Patient has suicidal ideation: No Patient has homicidal ideation: No - Past Medical History Cardiac Medical History: Reports: Hx Atrial Fibrillation, Hx Congestive Heart Failure, Hx Coronary Artery Disease, Hx Hypercholesterolemia, Hx Hypertension, Hx Heart Murmur Denies: Hx Heart Attack, Hx Peripheral Vascular Disease, Hx Pulmonary Embolism Pulmonary Medical History: Reports: Hx Pneumonia, Hx Sleep Apnea - Uncertain settings; no home O2 Denies: Hx Asthma, Hx Bronchitis, Hx COPD, Hx Respiratory Failure, Hx Tuberculosis Neurological Medical History: Reports: Hx Cerebrovascular Accident, Hx Migraine, Hx Seizures Endocrine Medical History: Reports: Hx Hypothyroidism. Denies: Hx Diabetes Mellitus Type 1, Hx Diabetes Mellitus Type 2, Hx Graves' Disease, Hx Hyperthyroidism Renal/ Medical History: Reports: Hx Kidney Stones. Denies: Hx End Stage Renal Disease, Hx Peritoneal Dialysis Malignancy Medical History: Denies: Hx Leukemia, Hx Lung Cancer GI Medical History: Reports: Hx Gastroesophageal Reflux Disease, Hx Irritable Bowel. Denies: Hx Cirrhosis, Hx Crohn's Disease, Hx Hepatitis, Hx Liver Failure, Hx Pancreatitis Musculoskeletal Medical History: Denies Hx Arthritis, Reports Hx Fibromyalgia, Denies Hx Multiple Sclerosis, Denies Hx Muscular Dystrophy Psychiatric Medical History: Reports: Hx Anxiety, Hx Bipolar Disorder, Hx Depression Denies: Hx Dementia, Hx Post Traumatic Stress Disorder, Hx Schizophrenia Traumatic Medical History: Denies: Hx Fractures Infectious Medical History: Denies: Hx Hepatitis Past Surgical History: Reports: Hx Abdominal Surgery - Abdominoplasty after a gastric bypass, Hx Appendectomy, Hx Breast Surgery - breast reduction, Hx Cardiac Catheterization - x3, Hx Cholecystectomy, Hx Gastric Bypass Surgery, Hx Hysterectomy, Hx Orthopedic Surgery - R ankle, Hx Vascular Surgery - PORT. Denies: Hx Bowel Surgery, Hx Section, Hx Colostomy, Hx Coronary Artery Bypass Graft, Hx Herniorrhaphy, Hx Mastectomy, Hx Pacemaker, Hx Tonsillectomy, Hx Tubal Ligation - Immunizations Immunizations up to date: Yes Hx Diphtheria, Pertussis, Tetanus Vaccination: Yes Hx Pneumococcal Vaccination: 01/17/13 Review of Systems - Review of Systems Constitutional: No symptoms reported EENT: No symptoms reported Cardiovascular: See HPI Respiratory: See HPI Gastrointestinal: No symptoms reported Genitourinary: No symptoms reported Musculoskeletal: See HPI Skin: No symptoms reported Neurological/Psychological: No symptoms reported Physical Exam - Vital signs Vitals: Temp Pulse Resp BP Pulse Ox 97.7 F 54 L 20 125/71 96 03/20/19 23:50 03/20/19 23:50 03/20/19 23:50 03/20/19 23:50 03/20/19 23:50 - Notes Notes: Vital signs reviewed, please refer to chart. Patient is normocephalic, atraumatic. Pupils equal round, reactive to light. Neck is supple without meningismus. Heart is regular rate and rhythm. Lungs are clear to auscultation bilaterally. Chest wall excursion is equal bilaterally. She is tender over the anterolateral left chest, ribs 7 through 9. No crepitance, no subcutaneous emphysema. Abdomen is soft, nontender, normoactive bowel sounds throughout. Extremities without cyanosis, clubbing. Peripheral pulses are equal. Skin is warm and dry. Patient is awake, alert, neurological exam is nonfocal. Course - Re-evaluation Re-evalutation: 03/21/19 01:25 Patient presents to the emergency department for evaluation of left-sided chest pain. It is reproducible, after a fall. X-rays of the ribs were ordered, as early on rib fractures can be missed. She is oxygenating well. Her lungs are clear. Her abdomen is soft nontender. She is given 1 dose of Percocet here, awaiting x-ray results. 03/21/19 02:59 Patient sleeping comfortably. X-ray is unremarkable. Vital signs stable. Will discharge patient to follow-up with primary care. - Vital Signs Vital signs: Temp Pulse Resp BP Pulse Ox 97.6 F 52 L 16 116/52 L 99 03/21/19 01:03 03/21/19 01:03 03/21/19 01:03 03/21/19 01:03 03/21/19 01:03 - Diagnostic Test Radiology reviewed: Reports reviewed Radiology results interpreted by me: 03/21/19 02:42 Ribs w/Chest X-Ray 03/21/19 00:22 IMPRESSION: No discrete left rib fracture. No acute cardiopulmonary process. copyright 2011 [employer]- All Rights Reserved Discharge - Discharge Clinical Impression: Chest wall contusion Qualifiers: Encounter type: subsequent encounter Laterality: left Qualified Code(s): S20.212D - Contusion of left front wall of thorax, subsequent encounter Condition: Stable Disposition: HOME, SELF-CARE Instructions: Ice Packs ([facility]) Additional Instructions: Follow-up with your primary care physician this week. Continue your home medications as prescribed. Tylenol as needed for pain. Return to the emergency department with worsening or new concerning symptoms. Referrals: JENNIFER CELIS PA-C [Primary Care Provider] - Follow up as needed
--- NOTE | 2019-03-21 02:12 | RADIOLOGY REPORT (SQ) ---
EXAM DESCRIPTION: XR RIBS UNILATERAL WITH CHEST COMPLETED DATE/TME: 03/21/2019 00:22 CLINICAL HISTORY: 63 years, Female, injury COMPARISON: 10/28/2017 chest NUMBER OF VIEWS: 4 TECHNIQUE: AP chest 3 view left ribs LIMITATIONS: None. FINDINGS: Heart size normal. Left-sided stimulating device and right Rlenth-b-Radg catheter in place. Lungs are clear. No pneumothorax. Osteopenia. The electronic device obscures portions of the left ribs, as visualized no discrete left rib fracture. IMPRESSION: No discrete left rib fracture. No acute cardiopulmonary process. copyright 2010 [employer]- All Rights Reserved
[2019-03-21 03:49] VITALS: BP 106/49
== END 2019-03-21 03:49 | disposition home or self-care (01) ==
LOC: ER 23:27
DX: S20.212A Contusion of left front wall of thorax, initial encounter (principal); W01.190A Fall on same level from slipping, tripping and stumbling with subsequent striking against furniture, initial encounter; R06.02 Shortness of breath; I25.10 Atherosclerotic heart disease of native coronary artery without angina pectoris; I10 Essential (primary) hypertension; Z88.8 Allergy status to other drugs, medicaments and biological substances; Z88.5 Allergy status to narcotic agent; Z91.048 Other nonmedicinal substance allergy status
CPT/HCPCS: 99283; 71101; A9270 ×2; S0119

== ENCOUNTER → 2019-07-22 | Outpatient (CLI) | payer MEDICARE, OTHER ==
[2019-07-22 08:45] LABS: APPEARANCE,URINE CLEAR; BILIRUBIN,URINE NEGATIVE (NEGATIVE); COLOR,URINE YELLOW; GLUCOSE, URINE NEGATIVE (NEGATIVE); KETONES,URINE NEGATIVE (NEGATIVE); LEUKOCYTE ESTERASE,URINE TRACE (NEGATIVE); NITRITE,URINE NEGATIVE (NEGATIVE); PROTEIN,URINE NEGATIVE (NEGATIVE); URINE SPECIFIC GRAVITY 1.012; UROBILINOGEN,URINE NEGATIVE mg/dL (<2.0)
[2019-07-22 08:46] LABS: ABSOLUTE EOSINOPHILS # (AUTO) 0.1 10^3/uL (0.0-0.6); ABSOLUTE LYMPHOCYTES (AUTO) 2.3 10^3/uL (0.5-4.7); ABSOLUTE MONOCYTES (AUTO) 0.4 10^3/uL (0.1-1.4); ABSOLUTE NEUT (AUTO) 1.5 10^3/uL (1.7-8.2); BASOPHILS % (AUTO) 0.5 % (0-2); EOSINOPHILS % (AUTO) 1.7 % (0-6); HEMATOCRIT 37.4 % (36.0-47.0); HEMOGLOBIN 12.4 g/dL (12.0-15.5); LYMPHOCYTES % (AUTO) 53.2 % (13-45); MEAN CORPUSCULAR HEMOGLOBIN 32.5 pg (27.0-33.4); MEAN CORPUSCULAR HGB CONC 33.2 g/dL (32.0-36.0); MEAN CORPUSCULAR VOLUME 98 fl (80-97); MONOCYTES % (AUTO) 9.2 % (3-13); PLATELET COUNT 126 10^3/uL (150-450); RED BLOOD COUNT 3.82 10^6/uL (3.72-5.28); RED CELL DISTRIBUTION WIDTH 13.5 % (11.5-14.0); SEGMENTED NEUTROPHILS % (AUTO) 35.4 % (42-78); TOTAL CELLS COUNTED % (AUTO) 100 %; WHITE BLOOD COUNT 4.3 10^3/uL (4.0-10.5)
[2019-07-22 09:08] LABS: ANION GAP 6 (5-19); BLOOD UREA NITROGEN 21 mg/dL (7-20); CALCIUM 8.8 mg/dL (8.4-10.2); CARBON DIOXIDE 32 mmol/L (22-30); CHLORIDE 104 mmol/L (98-107); GLUCOSE 88 mg/dL (75-110); POTASSIUM 4.5 mmol/L (3.6-5.0)
--- NOTE | 2019-07-22 09:28 | RADIOLOGY REPORT (SQ) ---
EXAM DESCRIPTION: CHEST PA/LATERAL COMPLETED DATE/TIME: 07/22/2019 8:19 am REASON FOR STUDY: PRE-OP COMPARISON: 10/28/2017 EXAM PARAMETERS: NUMBER OF VIEWS: two views TECHNIQUE: Digital Frontal and Lateral radiographic views of the chest acquired. RADIATION DOSE: NA LIMITATIONS: none FINDINGS: LUNGS AND PLEURA: No opacities, masses or pneumothorax. No pleural effusion. MEDIASTINUM AND HILAR STRUCTURES: No masses or contour abnormalities. HEART AND VASCULAR STRUCTURES: Heart normal size. No evidence for failure. Aortic atherosclerosis. BONES: No acute findings. HARDWARE: Right subclavian double lumen chest port with catheter tip at cavoatrial junction. Partial ly visualized nerve stimulator overlies left chest. OTHER: No other significant finding. IMPRESSION: No evidence of acute cardiopulmonary process. TECHNICAL DOCUMENTATION: JOB ID: [id number] [employer]- All Rights Reserved Reading location - IP/workstation name: [email or web address]
--- NOTE | 2019-07-22 23:21 | EKG REPORT ---
SEVERITY:- ABNORMAL ECG - SINUS BRADYCARDIA LEFT VENTRICULAR HYPERTROPHY : Confirmed by: Radha Rojas 22-Jul-2019 23:20:47
== END ==
LOC: OD 07:42
PROVIDERS: ATTEND Orthopaedic Surgery
DX: Z01.810 Encounter for preprocedural cardiovascular examination (principal); Z01.811 Encounter for preprocedural respiratory examination; Z01.812 Encounter for preprocedural laboratory examination; Z01.818 Encounter for other preprocedural examination
CPT/HCPCS: 36415; 71046; 80048; 81001; 85025; 93005; 93010

== ENCOUNTER 2019-08-04 05:35 | Inpatient (IN) | payer MEDICARE, OTHER ==
[~2019-08-04 05:35] MED LIST: BUPIVACAINE INJ/PF LIPOSOME/PF 266 MG/20 ML SDV INJ PRN; CEFAZOLIN INJ 1 GM VIAL IV PRN; IBUPROFEN 800 MG in NORMAL SALINE 250 ML IV PRN; LACTATED RINGERS 1000 ML IV PRN; LIDOCAINE 0.5% INJ-PF (5 MG/ML) 50 ML SDV SUBCUT PRN; OXYCODONE HCL SR 10 MG TABLET PO PRN; PANTOPRAZOLE SODIUM 20 MG TABLET.DR PO PRN; VANCOMYCIN HCL 1,000 MG in DEXTROSE 5%-WATER 250 ML IV PRN
[2019-08-04] MEDS ORDERED: OXYCODONE HCL SR 10 MG TABLET PO ONE ×3 (06:24→14:00)
[2019-08-04] MEDS ORDERED: PANTOPRAZOLE SODIUM 20 MG TABLET.DR PO ONE (06:25)
[2019-08-04 06:32] LABS: INTERNATIONAL RATION (INR) 0.96; PARTIAL THROMBOPLASTIN TIME 23.8 SEC (23.5-35.8); PROTHROMBIN TIME 12.8 SEC (11.4-15.4)
[2019-08-04] MEDS ORDERED: CEFAZOLIN INJ 1 GM VIAL ONE (06:57)
[2019-08-04] MEDS ORDERED: BUPIVACAINE HCL 0.25% /EPINEPHRINE INJ/PF 30 ML SDV ONE (07:06)
[2019-08-04] MEDS ORDERED: KETAMINE HCL INJ 500 MG/10 ML VIAL ONE (07:10)
[2019-08-04] MEDS ORDERED: EPHEDRINE SULFATE INJ 50 MG/1 ML AMPULE ONE (07:10)
[2019-08-04] MEDS ORDERED: MIDAZOLAM 2 MG/2 ML INJ ONE (07:10)
[2019-08-04] MEDS ORDERED: FENTANYL CITRATE INJ/PF 100 MCG/2 ML AMPUL ONE (07:10)
[2019-08-04] MEDS ORDERED: TRANEXAMIC ACID INJ/PF 1,000 MG/10 ML SDV ONE ×2 (07:10→09:55)
[2019-08-04] MEDS ORDERED: PROPOFOL INJ 200 MG/20 ML VIAL IV ONE (07:11)
[2019-08-04] MEDS ORDERED: OXYCODONE-ACETAMINOPHEN 5-325 MG TABLET PO PRN (08:11)
[2019-08-04] MEDS ORDERED: DIPHENHYDRAMINE HCL 50 MG/ML VIAL IV PRN ×2 (08:11→08:44)
[2019-08-04] MEDS ORDERED: MEPERIDINE HCL/PF INJ 25 MG/1 ML DISP.SYRIN IV PRN (08:11)
[2019-08-04] MEDS ORDERED: PROMETHAZINE HCL INJ 25 MG/1 ML VIAL IV PRN ×2 (08:11)
[2019-08-04] MEDS ORDERED: FENTANYL CITRATE INJ/PF 100 MCG/2 ML AMPUL IV PRN ×3 (08:11)
--- NOTE | 2019-08-04 08:43 | Operative Report ---
Operative Report DATE OF SURGERY: 08/04/19 PREOPERATIVE DIAGNOSIS: Left knee arthritis OPERATION: Left knee arthroplasty SURGEON: JUDITH MARIO ANESTHESIA: Spinal TISSUE REMOVED OR ALTERED: Bone to pathology ESTIMATED BLOOD LOSS: 75 PROCEDURE: Implants used: Femur: Triathlon size 5 CR femur Tibia:4 Tibia Tibial liner: 11 mm CS insert Patella: 35 mm oval patella Procedure with the patient supine on the operating table the left the limb is prepped and draped in a sterile fashion. The limb was elevated for exsanguination and the tourniquet inflated to 280 torr. A standard midline median parapatellar approach the knee is taken. Access is gained to the femoral canal through the intercondylar notch. Intramedullary alignment instrumentation used to resect 10 mm of distal femur in 5 of valgus. Sizing guide indicated a size 5 femur. Appropriate cutting jig is then used to fashion anterior posterior and chamfer cuts. A trial reduction femurs performed and this is judged to be adequate. Attention was next turned to the tibia. Using an extra medullary alignment system 9 millimeters was resected off the lateral tibial plateau. This is sized to a size 4 tibia. A trial reduction was now performed with a 5 femur and a 4 tibia using a 11 millimeters spacer. It is full extension and central patellofemoral tracking. The articular surface the patella was next resected using an oscillating saw. All trial implants were removed. Polymethylmethacrylate is mixed and used to cement the above implants in place. On adequate curing the cement excess cement was removed the tourniquet was deflated hemostasis obtained the wound is then closed in layers using interrupted Vicryl followed by norma. A sterile compressive dressing was applied and the patient returned to recovery room in satisfactory condition.
[2019-08-04] MEDS ORDERED: ZOLPIDEM TARTRATE 5 MG TABLET PO PRN (08:44)
[2019-08-04] MEDS ORDERED: MAG HYDROX/AL HYDROX/SIMETH SUSP 30 ML UDCUP PO PRN (08:44)
[2019-08-04] MEDS ORDERED: RINGERS SOLUTION,LACTATED 1,000 ML IV PRN (08:44)
[2019-08-04] MEDS ORDERED: ONDANSETRON HCL INJ/PF 4 MG/2 ML SDV IV PRN (08:44)
--- NOTE | 2019-08-04 09:44 | RADIOLOGY REPORT (SQ) ---
EXAM DESCRIPTION: KNEE LEFT 2 VIEWS COMPLETED DATE/TIME: 08/04/2019 9:22 am REASON FOR STUDY: Post OP -Long Cassette in PACU M17.12 UNILATERAL PRIMARY OSTEOARTHRITIS, LEFT KNE E COMPARISON: None. NUMBER OF VIEWS: Two view(s). TECHNIQUE: Digital radiographic images of the left knee post-procedure. LIMITATIONS: None. FINDINGS: BONES: No worrisome or unexpected findings post-procedure. DEVICE: Total knee arthroplasty. SOFT TISSUES: No worrisome findings. Expected postoperative soft tissue changes. IMPRESSION: SATISFACTORY POSTOPERATIVE LEFT KNEE. TECHNICAL DOCUMENTATION: JOB ID: [id number] [employer]- All Rights Reserved Reading location - IP/workstation name: [email or web address]
[2019-08-04] MEDS ORDERED: TRANEXAMIC ACID INJ/PF 1,000 MG/10 ML SDV IV ONE (10:00)
[2019-08-04] MEDS ORDERED: (PENDING PHARMACY ID) (Esomeprazole Mag Trihydrate [Nexium] 40 MG) PO SCH (10:00)
[2019-08-04] MEDS ORDERED: BRIVARACETAM 200 MG PO SCH (10:00)
[2019-08-04] MEDS ORDERED: (PENDING PHARMACY ID) (Carbamazepine [Carbamazepine Er] 200 MG) PO SCH (10:00)
[2019-08-04] MEDS: OXYCODONE HCL IR 5 MG TABLET PO PRN ×2 (11:33→17:36)
[2019-08-04] MEDS ORDERED: OXYCODONE HCL IR 5 MG TABLET ONE (11:37)
[2019-08-04] MEDS ORDERED: ACETAMINOPHEN 1,000 MG/100 ML RTUPB IV ONE ×2 (12:43→14:44)
[2019-08-04] MEDS ORDERED: LIDOCAINE 2% INJ-PF (20 MG/ML) 2 ML AMPUL ONE (13:20)
[2019-08-04] MEDS: CARBAMAZEPINE 200 MG TABLET PO SCH ×2 (15:04→21:26)
[2019-08-04] MEDS ORDERED: ACETAMINOPHEN 325 MG TABLET PO PRN ×2 (15:58→21:00)
[2019-08-04] MEDS: ONDANSETRON 4 MG TAB.RAPDIS PO PRN (16:56)
[2019-08-04] MEDS: SENNOSIDES/DOCUSATE 8.6-50 MG 1 EACH TABLET PO SCH (17:35)
[2019-08-04] MEDS: RIVAROXABAN 10 MG TABLET PO SCH (17:35)
[2019-08-04] MEDS: FUROSEMIDE 40 MG TABLET PO SCH (17:35)
[2019-08-04] MEDS ORDERED: VANCOMYCIN HCL 1,000 MG in DEXTROSE 5%-WATER 250 ML IV ONE (21:00)
[2019-08-04] MEDS: FLECAINIDE ACETATE 100 MG TABLET PO SCH (21:24)
[2019-08-04] MEDS: VENLAFAXINE HCL 37.5 MG CAP.SR.24H PO SCH (21:24)
[2019-08-04] MEDS: METOPROLOL TARTRATE 25 MG TABLET PO SCH (21:25)
[2019-08-04] MEDS: ALPRAZOLAM 0.5 MG TABLET PO SCH (21:26)
[2019-08-04] MEDS: ATORVASTATIN CALCIUM 20 MG TABLET PO SCH (21:27)
[2019-08-05] MEDS: OXYCODONE HCL IR 5 MG TABLET PO PRN ×2 (02:50→10:45)
[2019-08-05 05:06] LABS: HEMATOCRIT 36.9 % (36.0-47.0); HEMOGLOBIN 12.4 g/dL (12.0-15.5); MEAN CORPUSCULAR HEMOGLOBIN 32.7 pg (27.0-33.4); MEAN CORPUSCULAR HGB CONC 33.5 g/dL (32.0-36.0); MEAN CORPUSCULAR VOLUME 98 fl (80-97); PLATELET COUNT 115 10^3/uL (150-450); RED BLOOD COUNT 3.79 10^6/uL (3.72-5.28); RED CELL DISTRIBUTION WIDTH 13.4 % (11.5-14.0)
[2019-08-05 05:23] LABS: ANION GAP 7 (5-19); BLOOD UREA NITROGEN 11 mg/dL (7-20); CALCIUM 8.7 mg/dL (8.4-10.2); CARBON DIOXIDE 30 mmol/L (22-30); CHLORIDE 101 mmol/L (98-107); GLUCOSE 158 mg/dL (75-110); POTASSIUM 4.6 mmol/L (3.6-5.0)
[2019-08-05] MEDS: LEVOTHYROXINE SODIUM 0.025 MG TABLET PO SCH (06:07)
[2019-08-05] MEDS: OXYCODONE HCL SR 10 MG TABLET PO SCH ×2 (06:07→17:04)
[2019-08-05] MEDS: PANTOPRAZOLE SODIUM 40 MG TABLET.DR PO SCH (06:07)
[2019-08-05] MEDS: CARBAMAZEPINE 200 MG TABLET PO SCH ×3 (06:09→21:20)
--- NOTE | 2019-08-05 07:03 | PDOC PROGRESS REPORT ---
Subjective Progress Note for:: 08/05/19 Reason For Visit: LEFT KNEE ARTHRITIS 64-year-old white female postop day 1 left knee arthroplasty. Patient with limited progress with physical therapy yesterday and ongoing complaints of pain overnight. Physical Exam Vital Signs: Temp Pulse Resp BP Pulse Ox 36.6 C 55 L 17 151/57 H 99 08/04/19 19:30 08/04/19 19:30 08/04/19 19:30 08/04/19 19:30 08/04/19 19:30 Intake & Output 08/04/19 08/05/19 08/06/19 06:59 06:59 06:59 Intake Total 0 3045 Output Total 300 Balance 0 2745 Weight 89 kg General appearance: PRESENT: no acute distress, mild distress, well-developed, well-nourished Respiratory exam: PRESENT: unlabored Cardiovascular exam: PRESENT: RRR Vascular exam: PRESENT: normal capillary refill GI/Abdominal exam: PRESENT: soft Rectal exam: PRESENT: deferred Musculoskeletal exam: PRESENT: other - Left knee compression dressing clean dry and intact. Exposed toes have brisk capillary refill, sensory examination to light touch, and motor function to the great toe. Neurological exam: PRESENT: alert, awake, oriented to person, oriented to place, oriented to time, oriented to situation. ABSENT: motor sensory deficit Psychiatric exam: PRESENT: appropriate affect, normal mood. ABSENT: homicidal ideation, suicidal ideation Skin exam: PRESENT: dry, intact, warm. ABSENT: cyanosis, rash Results Laboratory Results: 08/05/19 03:32 08/05/19 03:32 08/05/19 08/05/19 03:32 03:32 WBC 6.0 RBC 3.79 Hgb 12.4 Hct 36.9 MCV 98 H MCH 32.7 MCHC 33.5 RDW 13.4 Plt Count 115 L Sodium 138.1 Potassium 4.6 Chloride 101 Carbon Dioxide 30 Anion Gap 7 BUN 11 Creatinine 0.57 Est GFR ( Amer) > 60 Glucose 158 H Calcium 8.7 Impressions: Knee X-Ray 08/04/19 08:45 IMPRESSION: SATISFACTORY POSTOPERATIVE LEFT KNEE. Status: Imported from PACS Assessment & Plan - Diagnosis (1) Arthritis of left knee Is this a current diagnosis for this admission?: Yes Plan: Patient to be mobilized with physical therapy and weightbearing as tolerated basis. Patient is uncertain at this point whether she is looking for discharge home with home health services versus custodial facility placement. - Time Time Spent with patient: 15-24 minutes Anticipated discharge: Other Within: Other
[2019-08-05] MEDS: ONDANSETRON 4 MG TAB.RAPDIS PO PRN (09:06)
[2019-08-05] MEDS: POTASSIUM CHLORIDE 10 MEQ CAPSULE.ER PO SCH (09:07)
[2019-08-05] MEDS: SENNOSIDES/DOCUSATE 8.6-50 MG 1 EACH TABLET PO SCH ×2 (09:08→17:04)
[2019-08-05] MEDS: FUROSEMIDE 40 MG TABLET PO SCH ×2 (09:08→17:04)
[2019-08-05] MEDS: PRENATAL VITAMIN W DHA CAPSULE PO SCH (09:08)
[2019-08-05] MEDS: VENLAFAXINE HCL 37.5 MG CAP.SR.24H PO SCH ×2 (09:08→21:18)
[2019-08-05] MEDS: METOPROLOL TARTRATE 25 MG TABLET PO SCH ×2 (09:08→21:19)
[2019-08-05] MEDS: FLECAINIDE ACETATE 100 MG TABLET PO SCH ×2 (09:09→21:18)
[2019-08-05] MEDS: RIVAROXABAN 10 MG TABLET PO SCH (17:04)
[2019-08-05] MEDS: ALPRAZOLAM 0.5 MG TABLET PO SCH (21:20)
[2019-08-05] MEDS: ATORVASTATIN CALCIUM 20 MG TABLET PO SCH (21:20)
[2019-08-06] MEDS: CARBAMAZEPINE 200 MG TABLET PO SCH ×3 (05:05→21:33)
[2019-08-06] MEDS: LEVOTHYROXINE SODIUM 0.025 MG TABLET PO SCH (05:05)
[2019-08-06] MEDS: PANTOPRAZOLE SODIUM 40 MG TABLET.DR PO SCH (05:05)
[2019-08-06] MEDS: OXYCODONE HCL SR 10 MG TABLET PO SCH (05:05)
--- NOTE | 2019-08-06 06:54 | PDOC PROGRESS REPORT ---
Subjective Progress Note for:: 08/06/19 Reason For Visit: LEFT KNEE ARTHRITIS 64-year-old white female now postop day 2 status post left knee arthroplasty. Very limited progress with physical therapy yesterday. Patient states she had 2 seizures yesterday which was the reason for her evening confusion? Physical Exam Vital Signs: Temp Pulse Resp BP Pulse Ox 37.1 C 66 16 142/56 H 96 08/05/19 16:01 08/05/19 16:01 08/05/19 16:01 08/05/19 16:01 08/05/19 16:01 Intake & Output 08/04/19 08/05/19 08/06/19 06:59 06:59 06:59 Intake Total 0 3045 0 Output Total 300 Balance 0 2745 0 Weight 89 kg 90.1 kg Physical Exam: Elderly white female lying in bed. Patient is conversant but continues to be confused. General appearance: PRESENT: no acute distress Head exam: PRESENT: normocephalic Respiratory exam: PRESENT: unlabored Cardiovascular exam: PRESENT: RRR Pulses: PRESENT: +1 pedal pulses bilateral Vascular exam: PRESENT: normal capillary refill GI/Abdominal exam: PRESENT: soft Rectal exam: PRESENT: deferred Extremities exam: PRESENT: other - Patient is somehow remove the underlying OpSite dressing without removing the overlying compressive dressing. How she did this on not quite sure. At this point the incision is well approximately norma. Is clean dry and intact with a small amount of surrounding ecchymosis. A new OpSite dressing is placed. Neurological exam: PRESENT: altered, awake, oriented to time, oriented to sit uation Skin exam: PRESENT: dry, intact, warm. ABSENT: cyanosis, rash Results Laboratory Results: 08/05/19 03:32 08/05/19 03:32 Impressions: Knee X-Ray 08/04/19 08:45 IMPRESSION: SATISFACTORY POSTOPERATIVE LEFT KNEE. Status: Imported from PACS Assessment & Plan - Diagnosis (1) Arthritis of left knee Is this a current diagnosis for this admission?: Yes Plan: Patient with limited progress with physical therapy today. Unless a significant progress today the patient would probably be best served with snf facility placement tomorrow. - Time Time Spent with patient: 15-24 minutes Within: within 24 hours
[2019-08-06 07:14] LABS: HEMATOCRIT 34.2 % (36.0-47.0); HEMOGLOBIN 11.6 g/dL (12.0-15.5); MEAN CORPUSCULAR HEMOGLOBIN 32.8 pg (27.0-33.4); MEAN CORPUSCULAR VOLUME 97 fl (80-97); PLATELET COUNT 104 10^3/uL (150-450); RED BLOOD COUNT 3.55 10^6/uL (3.72-5.28); RED CELL DISTRIBUTION WIDTH 13.6 % (11.5-14.0); WHITE BLOOD COUNT 7.6 10^3/uL (4.0-10.5)
[2019-08-06] MEDS: OXYCODONE HCL IR 5 MG TABLET PO PRN (08:11)
[2019-08-06] MEDS: POTASSIUM CHLORIDE 10 MEQ CAPSULE.ER PO SCH (09:04)
[2019-08-06] MEDS: PRENATAL VITAMIN W DHA CAPSULE PO SCH (09:04)
[2019-08-06] MEDS: VENLAFAXINE HCL 37.5 MG CAP.SR.24H PO SCH ×2 (09:04→21:33)
[2019-08-06] MEDS: FUROSEMIDE 40 MG TABLET PO SCH ×2 (09:04→17:47)
[2019-08-06] MEDS: METOPROLOL TARTRATE 25 MG TABLET PO SCH ×2 (09:05→21:33)
[2019-08-06] MEDS: SENNOSIDES/DOCUSATE 8.6-50 MG 1 EACH TABLET PO SCH ×2 (09:05→17:47)
[2019-08-06] MEDS: FLECAINIDE ACETATE 100 MG TABLET PO SCH ×2 (09:05→21:33)
[2019-08-06] MEDS: RIVAROXABAN 10 MG TABLET PO SCH (17:47)
[2019-08-06 21:32] VITALS: BP 126/46
[2019-08-06] MEDS: ALPRAZOLAM 0.5 MG TABLET PO SCH (21:33)
[2019-08-06] MEDS: ATORVASTATIN CALCIUM 20 MG TABLET PO SCH (21:33)
[2019-08-07] MEDS: OXYCODONE HCL IR 5 MG TABLET PO PRN (00:50)
[2019-08-07] MEDS: LEVOTHYROXINE SODIUM 0.025 MG TABLET PO SCH (05:05)
[2019-08-07] MEDS: CARBAMAZEPINE 200 MG TABLET PO SCH (05:05)
[2019-08-07] MEDS: PANTOPRAZOLE SODIUM 40 MG TABLET.DR PO SCH (05:06)
[2019-08-07 06:31] LABS: HEMATOCRIT 29.7 % (36.0-47.0); HEMOGLOBIN 10.1 g/dL (12.0-15.5); MEAN CORPUSCULAR VOLUME 97 fl (80-97); RED BLOOD COUNT 3.06 10^6/uL (3.72-5.28); RED CELL DISTRIBUTION WIDTH 13.3 % (11.5-14.0); WHITE BLOOD COUNT 6.8 10^3/uL (4.0-10.5)
[2019-08-07 06:35] LABS: PLATELET COUNT 93 10^3/uL (150-450)
--- NOTE | 2019-08-07 06:39 | PDOC TRANSFER SUMMARY ---
General - Admit/Disc Date/PCP Admission Date/Primary Care Provider: 08/04/19 05:35 JENNIFER CELIS PA-C Discharge Date: 08/07/19 - Discharge Diagnosis (1) Arthritis of left knee Is this a current diagnosis for this admission?: Yes Summary: 64-year-old white female with progressive left knee pain and functional disability second osteoarthritis. She is now postop day 3 from left knee arthroplasty. Uneventful postoperative course. Limited progress with physical therapy. - Additional Information Resuscitation Status: Full Code Discharge Diet: As Tolerated, Regular Discharge Activity: Balance Activity w/Rest, No tub bath Home Medications: Alprazolam [Xanax 0.5 mg Tablet] 0.5 mg PO Q8 08/04/19 Atorvastatin Calcium [Lipitor 20 mg Tablet] 20 mg PO QHS 08/04/19 Brivaracetam [Briviact] 200 mg PO Q12 08/04/19 Carbamazepine [Tegretol Xr 200 mg Tab.sr] 200 mg PO Q8 08/04/19 Ergocalciferol (Vitamin D2) [Drisdol 50,000 unit (1.25MG) Capsule] 50,000 unit PO MO@0800 08/04/19 Esomeprazole Magnesium 40 mg PO DAILY 08/04/19 Flecainide Acetate [Tambocor 100 mg Tablet] 100 mg PO BID 08/04/19 Furosemide [Lasix 40 mg Tablet] 40 mg PO BID 08/04/19 Levothyroxine Sodium [Synthroid 0.025 mg Tablet] 0.025 mg PO Q6AM 08/04/19 Metoprolol Tartrate [Lopressor 25 mg Tablet] 25 mg PO Q12 08/04/19 Potassium Chloride [Klor-Con M20] 20 meq PO DAILY 08/04/19 Rivaroxaban [Xarelto] 20 mg PO DAILY 08/04/19 Ubidecarenone [Coenzyme Q10] 10 mg PO DAILY 08/04/19 Venlafaxine HCl ER [Effexor Xr 37.5 mg Cap.sr] 37.5 mg PO QAM 08/04/19 Venlafaxine HCl ER [Effexor Xr 37.5 mg Cap.sr] 75 mg PO QHS 08/04/19 Additional Information: Oxycodone and aspirin History of Present Illness Admission Date/PCP: 08/04/19 05:35 JENNIFER CELIS PA-C Patient complains of: Left knee pain History of Present Illness: ALLA SELBY is a 64 year old female 64-year-old white female with progressive left knee pain and functional disa bility second osteoarthritis. Patient admitted for elective left knee arthroplasty. Hospital Course Hospital Course: Patient is admitted through the operating where she undergoes undergoes an uncomplicated left knee arthroplasty. She is returned to floor in satisfactory condition. While there are no unexpected complications or progress with physical therapy is relatively slow. Physical Exam Vital Signs: Temp Pulse Resp BP Pulse Ox 37.1 C 75 17 126/46 H 95 08/06/19 20:25 08/06/19 20:25 08/06/19 20:25 08/06/19 20:25 08/06/19 20:25 Intake & Output 08/05/19 08/06/19 08/07/19 06:59 06:59 06:59 Intake Total 3045 0 737 Output Total 300 Balance 2745 0 737 Weight 89 kg 90.1 kg 89.3 kg General appearance: PRESENT: no acute distress, well-developed, well-nourished Head exam: PRESENT: normocephalic Respiratory exam: PRESENT: unlabored Cardiovascular exam: PRESENT: RRR Pulses: PRESENT: +1 pedal pulses bilateral Vascular exam: PRESENT: normal capillary refill GI/Abdominal exam: PRESENT: soft Rectal exam: PRESENT: deferred Musculoskeletal exam: PRESENT: other - Left knee incision covered by OpSite. Is clean dry and intact. There is minimal pedal edema. Distal neurovascular examination is intact. Neurological exam: PRESENT: alert, awake, oriented to person, oriented to place, oriented to time, oriented to situation. ABSENT: motor sensory deficit Skin exam: PRESENT: dry, intact, warm. ABSENT: cyanosis, rash Results Laboratory Results: 08/07/19 03:53 08/05/19 03:32 08/06/19 08/07/19 06:53 03:53 WBC 7.6 6.8 RBC 3.55 L 3.06 L Hgb 11.6 L 10.1 L Hct 34.2 L 29.7 L MCV 97 97 MCH 32.8 33.0 MCHC 34.0 34.0 RDW 13.6 13.3 Plt Count 104 L 93 L Impressions: Knee X-Ray 09/16/19 08:45 IMPRESSION: SATISFACTORY POSTOPERATIVE LEFT KNEE. Status: Imported from PACS Transfer Plan - Disposition Transfer Plan: Transfer to alf facility at [facility] - Time Spent with Patient Time spent with patient: Less than 30 Minutes Qualifiers - * PATIENT BEING DISCHARGED WITH ANY OF THE FOLLOWING DIAGNOSIS: No VTE patient discharged on overlapping Therapy?: Yes Acute Heart Failure - Is this a Heart Failure Patient?: No Plan Discharge Plan: Ongoing physical therapy for range of motion, strengthening, weightbearing sterile ambulation. Follow-up with Dr. Denney and [facility] for surgery in 2 weeks for staple removal.
[2019-08-07] MEDS: POTASSIUM CHLORIDE 10 MEQ CAPSULE.ER PO SCH (10:07)
[2019-08-07] MEDS: FUROSEMIDE 40 MG TABLET PO SCH (10:08)
[2019-08-07] MEDS: PRENATAL VITAMIN W DHA CAPSULE PO SCH (10:08)
[2019-08-07] MEDS: METOPROLOL TARTRATE 25 MG TABLET PO SCH (10:08)
[2019-08-07] MEDS: SENNOSIDES/DOCUSATE 8.6-50 MG 1 EACH TABLET PO SCH (10:08)
[2019-08-07] MEDS: VENLAFAXINE HCL 37.5 MG CAP.SR.24H PO SCH (10:09)
[2019-08-07] MEDS: FLECAINIDE ACETATE 100 MG TABLET PO SCH (10:09)
== END 2019-08-07 12:17 | DRG 470 ==
LOC: INOR 05:35 → 4S 14:25
PROVIDERS: ADMIT Orthopaedic Surgery; ATTEND Orthopaedic Surgery
PROC: 0SRD0J9 Replacement of Left Knee Joint with Synthetic Substitute, Cemented, Open Approach (ICD-10-PCS; principal; 2019-08-04 07:30)
DX: M17.12 Unilateral primary osteoarthritis, left knee (principal); K58.9 Irritable bowel syndrome, unspecified; E03.9 Hypothyroidism, unspecified; I10 Essential (primary) hypertension; I48.91 Unspecified atrial fibrillation; F41.9 Anxiety disorder, unspecified; G40.909 Epilepsy, unspecified, not intractable, without status epilepticus; M54.9 Dorsalgia, unspecified; G47.30 Sleep apnea, unspecified
CPT/HCPCS: 01402; 36415; 80048; 84132; 85027; 85610; 85730; 88305; 88311; 94799; C1713; C1776; J0131; J0690; J1642; J1741; J2250; J2704; J3010; J3370; J3490; J7050; J7060; J7120; S0119

== ENCOUNTER → 2020-08-24 | Outpatient (CLI) | payer MEDICARE, OTHER ==
--- NOTE | 2020-08-24 11:15 | WOMENS IMAGING REPORT ---
EXAM DESCRIPTION: 3D SCREENING MAMMO BILAT IMAGES COMPLETED DATE/TIME: 08/24/2020 9:16 am REASON FOR STUDY: Z12.31 ENCNTR SCREEN MAMMOGRAM FOR MALIGNANT NEOPLASM OF BREAST Z12.31 ENCNTR SCR EEN MAMMOGRAM FOR MALIGNANT NEOPLASM OF HEYDI COMPARISON: 11/08/2018 and 09/06/2017. EXAM PARAMETERS: Views: Standard craniocaudal and mediolateral oblique views of each breast recorded using digital acquisition and breast tomosynthesis. Read with the assistance of CAD. .[facility] - R2 Tour Operator Version 9.2 LIMITATIONS: None. FINDINGS: No suspicious masses, suspicious calcifications or architectural distortion. No areas of c oncern. IMPRESSION: NEGATIVE MAMMOGRAM. BIRADS 1. BREAST DENSITY: b. There are scattered areas of fibroglandular density. BIRAD: ASSESSMENT: 1 NEGATIVE RECOMMENDATION: ROUTINE SCREENING COMMENT: The patient has been notified of the results by letter per MQSA requirements. Additional no tification policies are in place for contacting patient with suspicious or incomplete findings. Quality ID #225: The [employer] recommends an annual screening mammogram for women aged 40 years or over. This facility utilizes a reminder system to ensure that all patients receive reminder letters, and/or direct phone calls for appointments. This includes reminders for routine scr eening mammograms, diagnostic mammograms, or other Breast Imaging Interventions when appropriate. Th is patient will be placed in the appropriate reminder system. TECHNICAL DOCUMENTATION: FINDING NUMBER: (1) ASSESSMENT: (1) JOB ID: [id number] 2010 [employer]- All Rights Reserved Reading location - IP/workstation name: [email or web address]
== END ==
LOC: WI 08:22
PROVIDERS: ATTEND Physician Assistant
DX: Z12.31 Encounter for screening mammogram for malignant neoplasm of breast (principal)
CPT/HCPCS: 77063; 77067

== ENCOUNTER → 2020-12-17 | Outpatient (CLI) | payer MEDICARE, OTHER ==
--- NOTE | 2020-12-17 11:26 | RADIOLOGY REPORT (SQ) ---
EXAM DESCRIPTION: BARIUM SWALLOW ESOPHAGUS IMAGES COMPLETED DATE/TIME: 12/17/2020 10:01 am REASON FOR STUDY: NAUSEA W/ VOMITING R11.2 NAUSEA WITH VOMITING, UNSPECIFIED R63.4 ABNORMAL WEIGHT LOSS I50.30 UNSPECIFIED DIASTOLIC (CONGESTIVE) HEART FAILURE COMPARISON: None. TECHNIQUE: Under fluoroscopic guidance, patient ingested effervescent granules followed by thick and thin barium. Fluoroscopic spot images and routine radiographic images acquired and stored on PACS. 12 MM BARIUM TABLET GIVEN: Barium tablet passed through the esophagus and into the stomach without de lay. LIMITATIONS: None. FLUOROSCOPY TIME: FLUORO TIME: 2.3 minutes 9 images saved to PACS. FINDINGS: NEUROMUSCULAR COORDINATION OF SWALLOW: Normal. No aspiration. ESOPHAGEAL MOTILITY: Normal peristalsis. No esophageal spasm. ESOPHAGEAL MUCOSA: Normal mucosa without masses or ulceration. GASTRO-ESOPHAGEAL JUNCTION: Surgical changes consistent with gastric bypass. No evidence for bypass complication. Tiny hiatal hernia is present. No gastroesophageal reflux. NON-GI TRACT STRUCTURES: No significant finding. OTHER: No other significant finding. IMPRESSION: PRIOR GASTRIC BYPASS. TINY HIATAL HERNIA. OTHERWISE UNREMARKABLE STUDY. RECOMMENDATION: None COMMENT: None Quality ID 145: Final reports for procedures using fluoroscopy that document radiation exposure juan monica, or exposure time and number of fluorographic images (if radiation exposure indices are not avail able) TECHNICAL DOCUMENTATION: JOB ID: [id number] 2010 [employer]- All Rights Reserved Reading location - IP/workstation name: [email or web address]
--- NOTE | 2020-12-17 11:48 | RADIOLOGY REPORT (SQ) ---
EXAM DESCRIPTION: CT CHEST WITHOUT IMAGES COMPLETED DATE/TIME: 12/17/2020 9:21 am REASON FOR STUDY: UNSPECIFIED DIASTOLIC (CONGESTIVE) HEART FAILURE R11.2 NAUSEA WITH VOMITING, UNSP ECIFIED R63.4 ABNORMAL WEIGHT LOSS I50.30 UNSPECIFIED DIASTOLIC (CONGESTIVE) HEART FAILURE COMPARISON: 07/22/2019 and 07/03/2018 TECHNIQUE: CT scan performed of the chest without intravenous contrast. Images reviewed with lung, soft tissue and bone windows. Reconstructed coronal and sagittal MPR images reviewed. All images st ored on PACS. All CT scanners at this facility use dose modulation, iterative reconstruction, and/or weight based d osing when appropriate to reduce radiation dose to as low as reasonably achievable (ALARA). [facility]: Dose Right [facility]: CareDose [facility]: Dose Right [facility]: Teradose 4D [facility]: [employer] RADIATION DOSE: CT Rad equipment meets quality standard of care and radiation dose reduction techniq ues were employed. CTDIvol: 5.1 mGy. DLP: 181 mGy-cm. mGy. LIMITATIONS: No technical limitations. FINDINGS: LUNGS AND PLEURA: No masses, infiltrates, or pneumothorax. No pleural effusions or pleura l calcifications. HILAR AND MEDIASTINAL STRUCTURES: No identified masses or abnormal nodes. No obvious aneurysm. HEART AND VASCULAR STRUCTURES: Cardiomegaly. No pericardial effusion. Coronary artery calcification s are demonstrated. UPPER ABDOMEN: See separate report of the CT of the abdomen. THYROID AND OTHER SOFT TISSUES: No masses. No adenopathy. BONES: No significant finding. HARDWARE: Port-A-Cath terminates in the region of the cavoatrial junction. Left chest wall battery p ack. OTHER: No other significant findings. IMPRESSION: Stable CT appearance of the chest. No evidence of acute cardiopulmonary abnormality. TECHNICAL DOCUMENTATION: JOB ID: [id number] Quality ID # [id number]: Final reports with documentation of one or more dose reduction techniques (e.g., Au tomated exposure control, adjustment of the mA and/or kV according to patient size, use of iterative reconstruction technique) 2010 [employer]- All Rights Reserved Reading location - IP/workstation name: [email or web address]
--- NOTE | 2020-12-17 11:58 | RADIOLOGY REPORT (SQ) ---
EXAM DESCRIPTION: CT ABD/PELVIS WITH IV ONLY IMAGES COMPLETED DATE/TIME: 12/17/2020 9:21 am REASON FOR STUDY: UNSPECIFIED DIASTOLIC (CONGESTIVE) HEART FAILURE R11.2 NAUSEA WITH VOMITING, UNSP ECIFIED R63.4 ABNORMAL WEIGHT LOSS I50.30 UNSPECIFIED DIASTOLIC (CONGESTIVE) HEART FAILURE COMPARISON: 12/17/2018 TECHNIQUE: CT scan of the abdomen and pelvis performed using helical scanning technique with dynamic intravenous contrast injection. No oral contrast. Images reviewed with lung, soft tissue, and bone windows. Reconstructed coronal and sagittal MPR images reviewed. Delayed images for evaluation of the urinary system also acquired. All images stored on PACS. All CT scanners at this facility use dose modulation, iterative reconstruction, and/or weight based d osing when appropriate to reduce radiation dose to as low as reasonably achievable (ALARA). [facility]: Dose Right [facility]: CareDose [facility]: Dose Right [facility]: Teradose 4D [facility]: [employer] CONTRAST TYPE AND DOSE: contrast/concentration: Isovue 350.00 mmol/ml; Total Contrast Delivered: 73. 0 ml; Total Saline Delivered: 55.4 ml RENAL FUNCTION: Creatinine 1.0 RADIATION DOSE: CT Rad equipment meets quality standard of care and radiation dose reduction techniq ues were employed. CTDIvol: 5.5 - 7.3 mGy. DLP: 707 mGy-cm.. LIMITATIONS: None. FINDINGS: LOWER CHEST: See separate report of the CT of the chest. LIVER: Normal size. No masses. No dilated ducts. SPLEEN: Normal size. No focal lesions. PANCREAS: No masses. No significant calcifications. No adjacent inflammation or peripancreatic fluid collections. Pancreatic duct not dilated. GALLBLADDER: Surgically absent. ADRENAL GLANDS: No significant masses or asymmetry. RIGHT KIDNEY AND URETER: No solid masses. No significant calcifications. No hydronephrosis or hyd roureter. LEFT KIDNEY AND URETER: No solid masses. Multiple nonobstructing nephroliths. No hydronephrosis o r hydroureter. AORTA AND VESSELS: No aneurysm. No dissection. Renal arteries, SMA, celiac without stenosis. RETROPERITONEUM: No retroperitoneal adenopathy, hemorrhage or masses. BOWEL AND PERITONEAL CAVITY: Status post bariatric surgery. No focal inflammatory changes. No bowel obstruction. APPENDIX: Surgically absent. PELVIS: No mass. No free fluid. Normal bladder. ABDOMINAL WALL: Stable midline surgical changes. No masses. No hernias. Mild, diffuse subcutaneous fat stranding. Incidental note is made of a partially imaged collection within the right subcutaneo us soft tissues adjacent to the right greater trochanter, measuring on the order of 3.7 x 1.9 x 6.3 c m and demonstrating low intermediate Hounsfield units. BONES: Degenerative changes are seen of the hips and spine. No suspicious lytic or blastic osseous l esions. No fractures. OTHER: No other significant finding. IMPRESSION: No evidence of acute intra-abdominal infectious/inflammatory process. Incidental note i s made of a partially imaged subcutaneous fat collection adjacent to the right hip ; this is nonspeci fic and may represent a hematoma, abscess, phlegmon, seroma. Otherwise stable CT appearance of the a bdomen and pelvis. TECHNICAL DOCUMENTATION: JOB ID: [id number] Quality ID # 436: Final reports with documentation of one or more dose reduction techniques (e.g., Au tomated exposure control, adjustment of the mA and/or kV according to patient size, use of iterative reconstruction technique) 2010 [employer]- All Rights Reserved Reading location - IP/workstation name: [email or web address]
== END ==
LOC: RAD 08:15
PROVIDERS: ATTEND Physician Assistant
DX: I50.30 Unspecified diastolic (congestive) heart failure (principal); R63.4 Abnormal weight loss; R11.2 Nausea with vomiting, unspecified; K44.9 Diaphragmatic hernia without obstruction or gangrene; Z98.84 Bariatric surgery status
CPT/HCPCS: 71250; 74177; 74220; 82565